=== PATIENT | male | born 1935 | race Caucasian/White ===

== ENCOUNTER 2017-09-30 19:50 | Outpatient (CLI) | payer MEDICARE | END 2017-09-30 19:51 | disposition critical access hospital (66) | LOC: EMS 19:50 | PROVIDERS: ATTEND Surgery | DX: K92.1 Melena (principal); R55 Syncope and collapse | CPT/HCPCS: A0425; A0429 ==

== ENCOUNTER 2017-09-30 20:42 | Inpatient (IN) | payer MEDICARE ==
[2017-09-30] MEDS ORDERED: SODIUM CHLORIDE 0.9% 1,000 ML IV ONE (20:57)
[2017-09-30] MEDS ORDERED: PANTOPRAZOLE 40 MG VIAL IVP STA (20:57)
--- NOTE | 2017-09-30 21:01 | ED Physician Documentation ---
PD HPI GI BLEED - Stated complaint Stated Complaint: GI BLEED - Chief complaint Chief Complaint: Abd Pain - History obtained from History obtained from: Patient, EMS - History of Present Illness Timing - onset: How many days ago (5) Timing - duration: Days (5) Timing - details: Gradual onset, Still present, Waxing and waning Associated symptoms: BRBPR, Black/tarry stool Contributing factors: No: NSAID use Improved by: Other (nothing) Worsened by: Other (nothing) Similar symptoms before: Diagnosis (GI bleeding presumed from diverticula) Recently seen: Clinic (today) - Additional information Additional information: 81-year-old male with a history of intermittent GI bleeding has developed bleeding daily for the past 5 days. He has had bright red blood per rectum and black stool with each black bowel movement since Friday. He states this is happened to him in the past he has never required transfusion he is never been admitted to the hospital for this he has had upper and lower scoping and knows that he has some diverticula. Today he was in his home making dinner and he began to feel lightheaded and dizzy states that he barely made it into the bathroom had more bright red blood per rectum and then decided to call the ambulance after talking to his daughter. He did not have a syncopal episode. He states he has not had anything to eat since yesterday. He did go to see Dr. Bains today had some blood drawn. Review of Systems Constitutional: denies: Fever, Chills, Myalgias Eyes: denies: Decreased vision Ears: denies: Ear pain Nose: denies: Rhinorrhea / runny nose, Congestion Throat: denies: Sore throat Cardiac: denies: Chest pain / pressure, Palpitations Respiratory: denies: Dyspnea, Cough GI: reports: Bloody / black stool. denies: Abdominal Pain, Nausea, Vomiting : denies: Dysuria, Frequency Skin: denies: Rash Musculoskeletal: denies: Neck pain, Back pain, Extremity pain Neurologic: reports: Near syncope. denies: Generalized weakness, Focal weakness , Numbness, Syncope, Headache, Head injury PD PAST MEDICAL HISTORY - Present Medications Home Medications: Ambulatory Orders Medication Instructions Recorded Confirmed Atorvastatin [Lipitor] 20 mg ORAL QPM 09/30/17 Benazepril HCl 5 mg PO DAILY 09/30/17 Metoprolol Succinate 100 mg PO DAILY 09/30/17 Omeprazole 20 mg PO 09/30/17 - Allergies Allergies/Adverse Reactions: Allergies Allergy/AdvReac Type Severity Reaction Status Date / Time Penicillins Allergy Unknown Verified 09/30/17 23:28 PD ED PE NORMAL - Vitals Vital signs reviewed: Yes (Hypertensive) - General General: Alert and oriented X 3, No acute distress, Well developed/nourished, Other (good facial color) - HEENT HEENT: Atraumatic, PERRL, EOMI - Neck Neck: Supple, no meningeal sign - Cardiac Cardiac: RRR, No murmur - Respiratory Respiratory: No respiratory distress, Clear bilaterally - Abdomen Abdomen: Soft, Non tender - Back Back: No CVA TTP, No spinal TTP - Derm Derm: Normal color, Warm and dry, No rash - Extremities Extremities: No deformity, No edema - Neuro Neuro: No motor deficit, No sensory deficit Eye Opening: Spontaneous Motor: Obeys Commands Verbal: Oriented GCS Score: 15 - Psych Psych: Normal mood, Normal affect Results - Vitals Vitals: Vital Signs - 24 hr 09/30/17 20:44 Temperature 36.7 C Heart Rate 70 Respiratory 18 Rate Blood Pressure 154/69 H O2 Saturation 99 Oxygen O2 Source Room air - Labs Labs: Laboratory Tests 09/30/17 09/30/17 09/30/17 21:09 21:09 21:09 WBC 11.8 H RBC 3.69 L Hgb 9.6 L Hct 30.1 L MCV 81.4 MCH 25.9 L MCHC 31.8 L RDW 14.2 Plt Count 192 MPV 8.3 Neut # 9.7 H Lymph # 1.3 L [place] # 0.8 Eos # 0.1 Baso # 0.0 Absolute Nucleated RBC 0.01 Nucleated RBC % 0.1 Sodium 137 Potassium 3.6 Chloride 104 Carbon Dioxide 26 Anion Gap 7.0 BUN 25 H Creatinine 1.0 Estimated GFR (MDRD) 71 L Glucose 109 H Calcium 8.7 Total Bilirubin 0.8 AST 19 ALT 19 Alkaline Phosphatase 48 Troponin I < 0.04 Total Protein 7.0 Albumin 4.2 Globulin 2.8 Albumin/Globulin Ratio 1.5 Lipase 28 Blood Type Antibody Screen 09/30/17 21:09 WBC RBC Hgb Hct MCV MCH MCHC RDW Plt Count MPV Neut # Lymph # [place] # Eos # Baso # Absolute Nucleated RBC Nucleated RBC % Sodium Potassium Chloride Carbon Dioxide Anion Gap BUN Creatinine Estimated GFR (MDRD) Glucose Calcium Total Bilirubin AST ALT Alkaline Phosphatase Troponin I Total Protein Albumin Globulin Albumin/Globulin Ratio Lipase Blood Type O POSITIVE Antibody Screen NEGATIVE Procedures - IVC sono (time) 2100 Bedside IVC sono: IVC measures (cm) (0.82), IVC collapsed c insp (cm) (complete) , Dehydration (est 2 liter deficit) PD MEDICAL DECISION MAKING - ED course Complexity details: reviewed old records, reviewed results, re-evaluated patient , considered differential, d/w patient ED course: 81 y/o male with acute GI bleeding has developed near syncope associated with acute blood loss and is found to have a hematocrit of 30 and is normal is about 43. Dr. Parmar is consulted in the case and graciously agrees to care for the patient in the hospital. Departure - Departure Disposition: ED Place in Observation Discharge Date/Time: 09/30/17 22:40
[2017-09-30 21:20] LABS: BASOPHILS % (AUTO) 0.2 %; EOSINOPHILS # (AUTO) 0.1 10^3/uL (0.0-0.7); EOSINOPHILS % (AUTO) 0.5 %; HGB - HEMOGLOBIN 9.6 g/dL (14.0-18.0); LYMPHOCYTES # (AUTO) 1.3 10^3/uL (1.5-3.5); LYMPHOCYTES % (AUTO) 10.9 %; MEAN CORPUSCULAR HEMOGLOBIN 25.9 pg (27.0-31.0); MEAN CORPUSCULAR HGB CONC 31.8 g/dL (32.0-36.0); MEAN CORPUSCULAR VOLUME 81.4 fL (80.0-94.0); MEAN PLATELET VOLUME 8.3 fL (7.4-11.4); MONOCYTES # (AUTO) 0.8 10^3/uL (0.0-1.0); MONOCYTES % (AUTO) 6.4 %; NEUTROPHILS # (AUTO) 9.7 10^3/uL (1.5-6.6); PLT - PLATELET COUNT 192 10^3/uL (130-450); RED BLOOD COUNT 3.69 10^6/uL (4.70-6.10); RED CELL DISTRIBUTION WIDTH 14.2 % (12.0-15.0); WHITE BLOOD COUNT 11.8 x10^3/uL (4.8-10.8)
[2017-09-30 21:30] LABS: ALBUMIN 4.2 g/dL (3.2-5.5); ALBUMIN/GLOBULIN RATIO 1.5 (1.0-2.2); BILIRUBIN,TOTAL 0.8 mg/dL (0.2-1.0); CALCIUM 8.7 mg/dL (8.5-10.3)
[2017-09-30] MEDS ORDERED: ONDANSETRON 4 MG/2 ML VIAL IVP PRN (21:52)
[2017-09-30] MEDS ORDERED: ACETAMINOPHEN 325 MG TABLET PO PRN (21:52)
[2017-09-30] MEDS ORDERED: oxyCODONE 5 MG TABLET PO PRN (21:52)
[2017-09-30] MEDS ORDERED: ONDANSETRON ODT 4 MG TABLET TL PRN (21:52)
[2017-09-30] MEDS: SODIUM CHLORIDE 0.9% 1,000 ML IV SCH (23:21)
[2017-09-30] MEDS: SODIUM CHLORIDE FLUSH 0.9% 10 ML SYRINGE IVP PRN (23:25)
[2017-10-01] MEDS: SODIUM CHLORIDE FLUSH 0.9% 10 ML SYRINGE IVP SCH ×3 (00:10→17:46)
--- NOTE | 2017-10-01 02:21 | HISTORY & PHYSICAL EXAMINATION ---
DATE OF SERVICE: 09/30/2017 Physician: Demetrice Parmar MD PRIMARY CARE PROVIDER: Juan Bains as of today. ADMITTING PROVIDER: Demetrice Parmar MD CHIEF COMPLAINT: Near syncope in the context of bright red blood per rectum for 3-4 days. HISTORY OF PRESENT ILLNESS: Patient has a history of bright red blood per rectum off and on since 1954. It has gotten gradually worse as he has gotten older. He did have an evaluation approximately 2014 when he became very anemic in the face of this ongoing bright red blood per rectum. An upper and lower endoscopy were done. The only thing that he says they found was diverticulosis. He stoutly maintains that he will never undergo a colonoscopy again because he will not drink "5 gallons of that nasty tasting stuff." [place] to do so and saw Juan Bains today. When he saw Dr. Bains, he was there to establish himself as a new patient. He feels that his bright red blood per rectum is not a chronic problem and it was not bothering him at that moment in time, so he failed to mention it to Dr. Bains. He says the stool will be covered in bright red blood, but occasionally it is black and tarry. In the past, he would take iron for his chronic blood loss anemia and would completely make his stools, black when he did that. He is not on any iron right now. He denies any abdominal pain. No diarrhea, no constipation. He has had no unexpected weight changes. After seeing Dr. Bains, he had another episode of minimally black stool with bright red blood covering it. He tried to make some dinner and while he was standing there almost passed out with dizziness, vision fading and he had to sit down. He tried to make it to the bathroom, but again almost passed out and that is when he decided to call EMS. He was brought to the emergency room where he was afebrile, normotensive and not tachycardic. He was 99% on room air. He had a normal physical exam. Usual hemoglobin seems to be 14.7 and he was 9.6. Hematocrit is usually 43.8, and he was 30, white cell count was mildly elevated at 11.8. He is now brought into the hospital for recurrent GI bleed, and near syncope with acute blood loss anemia. PAST MEDICAL HISTORY 1. Coronary artery disease. Many years ago, he was shopping in [place] with his daughter. While he was waiting for her, he was overcome by a wave of severe fatigue, chest pressure and severe nausea. He sat down, but when he told his daughter what was happening, she promptly called 911 and he ended up at [facility]. He underwent an angioplasty at that time. At that time, he was under the care of Dr. Buck Saenz. He followed Dr. Saenz from [place] to [place]. In 2013, he was mowing his lawn here on [facility]. After mowing his lawn he started having that same horrible chest pressure and nausea and diaphoresis. This time, he was taken to [facility] and is now under the care of Arnold Ayala. With the 2013 admission to [facility], he underwent bypass surgery x3. He denies congestive heart failure, atrial fibrillation. 2. Cataract, right eye was removed with a new lens implant. Left eye still has a cataract and has not been done because that ointment mill tender retired. 3. Osteoarthritis of the thumbs. 4. Asthma as a child that he grew out of. 5. Right knee osteoarthritis with stiffness and pain that was improved tremendously with physical therapy in the last year. ALLERGIES: NO KNOWN DRUG ALLERGIES. MEDICATIONS 1. Atorvastatin 20 mg a day. 2. Benazepril 5 mg a day. 3. Metoprolol succinate 100 mg a day. 4. Omeprazole 20 mg a day. He specifically denies any recent nonsteroidal use. SOCIAL HISTORY: He was born in [place], but his family moved to the [place] and was living [place], [place]. Because public schools were pretty dismal, his family put him in a academy and he feels like that was the best decision that his mom and dad could have ever done. He left that Academy out of high school. He got out and went to the University for one year and hated it. 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 He started smoking in high school, but quit in 1962. Less than half pack per day. He does drink his Seagram-7 once a day. Sits down and watches TV and has an appetizer. He once joked with the [place] nurse that he was drinking 750 mL of Seagram-7. He was being sarcastic, but she took it seriously and to his dismay, Dr. Saenz thought he was an alcoholic, for some time. Patient stoutly maintains he was never an alcohol abuser. His over 30 years ago when she was 45 years old. He has never remarried. He did have 2 children with her. He lives alone in his own home. It is 3000 square foot home, on [place]. He rides motorcycles. Getting ready to plan his motorcycle ride in [place], [place] with his son. FAMILY HISTORY: He was an adopted child, so he does not know his parents ' history. No siblings, as far as he knows. He is 2 children are healthy. REVIEW OF SYSTEMS CONSTITUTIONAL: Negative for constitutional complaints of fever, chills, unexpected weight loss. ENT: Still has a cataract, left eye, but otherwise denies any problems with vision, swallowing, allergies, or speech. PULMONARY: Denies coughing, wheezing, chest congestion. CARDIAC: Vague chest pressure that is mild. Feels like it is stable angina, but no history of palpitations, orthopnea, edema. He is very physically active. GASTROINTESTINAL: Positive as above. GENITOURINARY: Denies nocturia, hematuria, hesitancy, frequency or flank pain. DERMATOLOGIC: Denies having any new lesions, moles, rashes. JOINTS: Knees will be the problem, base of the thumbs will be the problem, but nothing that limits him. No effusions. PSYCHIATRIC: Denies depression, hallucinations, and is very content to live alone in his own home. CENTRAL NERVOUS SYSTEM: Denies syncope, seizures, memory loss, focal deficits, dysphagia, dysarthria or blurred vision. PHYSICAL EXAMINATION VITAL SIGNS: He is seen in the emergency room. Temperature is 36.7, pulse is 72 , blood pressure 154/69, respirations 15, and he is 96% on room air. GENERAL: He is a medium height, alert, oriented white male who looks stated age , in no acute distress. Very vivacious conversationalist. Very charming man. HEAD AND NECK: Unremarkable. Pupils are reactive. Sclerae nonicteric. Good skin color with pink cheeks. [place] and moist oral mucosa. Neck is supple without goiter, JVD, or bruit. LUNGS: Clear to auscultation and percussion without increased labored respiration was speaking to me. CARDIAC: Regular rate and rhythm without murmur, rub or gallop. ABDOMEN: Soft, nontender. No organomegaly. No masses palpable. EXTREMITIES: Warm without clubbing, cyanosis or edema. NEUROLOGIC: He is alert and oriented to person, place and time, follows 2-step commands, is able to help us help him in transferring from the emergency room [facility] to the medical/surgical floor bed. LABORATORY DATA: Sodium, potassium, chloride, BUN and creatinine are relatively normal with a BUN mildly elevated at 25, GFR 71. Random glucose 109. Troponin less than 0.04. White cell count is 11.8, hemoglobin is 9.6, hematocrit 30.1, platelets 192. ASSESSMENT AND PLAN: 1.Near syncope. Attributed to acute blood loss anemia. He seems to describe some orthostatic changes. In thinking of other causes of near syncope , he does not have a history of arrhythmias. Telemetry monitoring in the ED shows sinus rhythm. He has no evidence of dehydration and has had normal p.o. intake. He takes antihypertensives but BP is stable. He does have a history of sepsis/hypotension /UTI but no infection seen even though his WBC is elevated. PLAN: Place in observation. Monitor blood pressure, pulse and for signs of incipient infection. ATTESTATION: That the patient will be admitted less than 96 hours. 2. Bright red blood per rectum with occasional melena. In spite of his telling me that he has had this off and on since 1954, he never really had an endoscopy until his upper and lower endoscopy mentioned above in his history. PLAN - Check serial hemoglobin and hematocrit. - Transfuse if drops left less than 8 of hemoglobin in view of his heart disease. - Get old records from [facility] where he said he underwent evaluation to get a review of his endoscopies. - Patient declines being evaluated here for upper and lower endoscopy. While he does not protest having serial hemograms, and transfusing him as needed, he would like to be transferred if the need for scopes becomes urgent. Otherwise, he would like to be discharged from here when he is stable and he will schedule his own outpatient followup. I told him that I would recommend a capsule endoscopy since he has already had an upper and lower. - Start IV proton pump inhibitor over the next 24 hours. 3. Coronary artery disease history. [place] artery. Continue his beta claude and benazepril since he is tolerating it well. 4. Hypertension. In spite of his near syncope and descriptions of orthostatic dizziness, blood pressure has been 145-154 systolic here. 5. DO NOT RESUSCITATE status. 6. Deep vein thrombosis prophylaxis will be compression stockings. TD: 10/01/2017 02:20 ADDENDUM: I have requested old records from [facility] and they have a sepsis with UTI admission from 11/15/13 and have gone as far back to 2010 when he was hospitalized for a GI bleed. But they have no EGD and colonoscopy. I will have to reask the patient where exactly he had his procedures. MERLIND
[2017-10-01 03:02] LABS: HGB - HEMOGLOBIN 8.6 g/dL (14.0-18.0)
[2017-10-01] MEDS: SODIUM CHLORIDE FLUSH 0.9% 10 ML SYRINGE IVP PRN ×2 (06:42→18:24)
[2017-10-01] MEDS: PANTOPRAZOLE 40 MG VIAL IVP SCH ×2 (06:42→17:46)
[2017-10-01] MEDS: SODIUM CHLORIDE 0.9% 1,000 ML IV SCH (08:22)
[2017-10-01] MEDS: POLYETHYLENE GLYCOL 3350 17 GM PACKET PO SCH (09:08)
[2017-10-01 15:25] LABS: HGB - HEMOGLOBIN 9.4 g/dL (14.0-18.0)
--- NOTE | 2017-10-01 15:46 | Discharge Plan ---
Discharge Plan Disposition: 01 Home, Self Care Condition: Fair Diet: Soft Activity Restrictions: Activity as Tolerated Shower Restrictions: No Driving Restrictions: No Weight Bearing: Full Weight Additional Instructions or Follow Up instructions: You presented to the ER after having a few bloody bowel movements and feeling like you were going to pass out. You had another bowel movement with blood in the hospital but the bleeding seems to have settled down. Your Hb remained stable during the hospitalization and your blood pressure and vital signs remained stable as well. You do not need an urgent colonoscopy at this point. Most likely you were having a diverticular bleed which often resolve spontaneously. I would still recommend that you follow up with your PCP and a surgeon to have a colonoscopy since its been a few years since you had your last colonoscopy. You want to make sure the bleeding is not coming from a more ominous source. You do not however need to stay inpatient to do an urgent colonoscopy. No Smoking: If you smoke, Please STOP! Call for help. Follow-up with: Juan Bains MD [Primary Care Provider] -
--- NOTE | 2017-10-01 17:32 | PROVIDER PROGRESS NOTE ---
Assessment/Plan - Problem List (1) GI bleed Qualifiers: GI bleed type/associated pathology: unspecified gastrointestinal hemorrhage type Qualified Code(s): K92.2 - Gastrointestinal hemorrhage, unspecified Assessment/Plan: Patient had BRBPR yesterday and presented with near syncope Hb remains stable today at 9.4 this afternoon Patient had one BM in the am with mild blood Patient was going to be discharged this afternoon but the patient had 2 moderate bloody BMs VS remain stable and patients hb has not dropped Given continued bleeding will change to inpatient and consult surgery for EGD and COlonoscopy Patient has history of recurrent GIBs thought to be diverticular bleeds in the past Continue IV protonix NPO at midnight Transfuse for hb less than 7 (2) Hypertension Qualifiers: Hypertension type: essential hypertension Qualified Code(s): I10 - Essential (primary) hypertension Assessment/Plan: BP has remained stable despite bleeding Will restart antihypertensives once bleeding stops Monitor for now (3) History of coronary artery disease Assessment/Plan: History of CAD s/p CABG Currently on Lipitor and metoprolol Continue home meds once bleeding resolves Stable - Current Meds Current Meds: Current Medications Generic Name Dose Route Start Last Admin Trade Name Freq PRN Reason Stop Dose Admin Sodium Chloride 1,000 mls @ 100 mls/hr 09/30/17 22:00 10/01/17 08:22 Normal Saline 0.9% IV 10/01/17 17:59 100 mls/hr .Q10H DIVINE Administration Pantoprazole Sodium 40 mg 10/01/17 07:00 10/01/17 06:42 Protonix IVP 40 mg BIDAC DIVINE Administration Polyethylene Glycol 17 gm 10/01/17 09:00 10/01/17 09:08 Miralax PO Not Given DAILY DIVINE Sodium Chloride 10 ml 09/30/17 21:52 10/01/17 06:42 Normal Saline Flush 0.9% IVP 10 ml PRN PRN Administration NEEDED PER PROVIDER ORDERS Sodium Chloride 10 ml 10/01/17 01:00 10/01/17 09:08 Normal Saline Flush 0.9% IVP Not Given 0100,0900,1700 DIVINE - Lab Result Lab results reviewed: Yes Fish Bone Diagrams: 10/01/17 15:15 09/30/17 21:09 - Additional Planning Condition/Complexity: Guarded My Orders: My Active Orders 10/01/17 General Surgery Consult [CONS] Routine 10/01/17 15:46 Discharge [RC] .ONCE Initiate Discharge Checklist [RC] .ONCE 10/01/17 16:47 Admit \ Transfer \ Status [RC] .ONCE 10/01/17 21:00 CBC - COMP BLD CT W/AUTO DIFF [HEME] Timed 10/02/17 00:01 NPO except Meds at Midnight [DIET] 10/02/17 05:00 CBC - COMP BLD CT W/AUTO DIFF [HEME] DAILYLAB CMP, RFLX TO IONIZED CA IF [CHEM] DAILYLAB PT WITH INR [COAG] DAILYLAB 10/02/17 09:00 Atorvastatin Calcium [Atorvastatin Calcium] 80 mg PO DAILY Benazepril HCl [Benazepril HCl] 40 mg PO DAILY Metoprolol Tartrate [Metoprolol Tartrate] 100 mg PO DAILY 10/02/17 Breakfast Clear Liquid Diet [DIET] Consult/Specialty: Surgery Plan Discussed with:: Patient, Family Time Spent: 31-60 minutes Subjective - Subjective Patient Reports: Other (No abdominal pain but continues to have bloody stools, denies dizziness, shortness of breath or syncope.) Nursing Reports: No Complaints Objective Vital Signs: Vital Signs - 24 hr 09/30/17 09/30/17 10/01/17 22:24 22:56 02:57 Temperature 36.3 C L 36.4 C L Heart Rate 72 Heart Rate [ 80 77 Brachial] Respiratory 15 18 18 Rate Blood Pressure 145/54 H 148/62 H [Right Brachial artery] O2 Saturation 96 99 97 10/01/17 10/01/17 07:34 16:00 Temperature 36.6 C 36.3 C L Heart Rate Heart Rate [ 76 96 Brachial] Respiratory 17 18 Rate Blood Pressure 152/60 H 146/73 H [Right Brachial artery] O2 Saturation 97 98 Oxygen O2 Source Room air I&O (Last 24 Hrs): Intake and Output Totals x24h 09/29/17 09/30/17 10/01/17 23:59 23:59 23:59 Intake Total 1000 901.667 Output Total 325 Balance 1000 576.667 General: Alert, Oriented x3, Cooperative, No acute distress HEENT: Atraumatic, PERRLA, EOMI, Mucous membr. moist/pink Neck: Supple, No JVD, No thyromegaly, +2 carotid pulse wo bruit, No LAD Lymphatic: no adenopathy Neuro: Alert, Non Focal, CN 2-12 Grossly Intact, Oriented Times 3 Cardiovascular: Regular rate, Normal S1, Normal S2, No murmurs Respiratory: Chest non-tender, No respiratory distress, Breath sounds nml Abdomen: Normal bowel sounds, Soft, No tenderness, No hepatospenomegaly Rectal: Bloody Stool Extremities: No clubbing, No cyanosis, No edema, Normal pulses Skin: No rashes, No breakdown - Results Results: Laboratory Results WBC 11.8 x10^3/uL (4.8-10.8) H 09/30/17 21:09 RBC 3.69 10^6/uL (4.70-6.10) L 09/30/17 21:09 Hgb 9.4 g/dL (14.0-18.0) L 10/01/17 15:15 Hct 28.4 % (42.0-52.0) L 10/01/17 15:15 MCV 81.4 fL (80.0-94.0) 09/30/17 21:09 MCH 25.9 pg (27.0-31.0) L 09/30/17 21:09 MCHC 31.8 g/dL (32.0-36.0) L 09/30/17 21:09 RDW 14.2 % (12.0-15.0) 09/30/17 21:09 Plt Count 192 10^3/uL (130-450) 09/30/17 21:09 MPV 8.3 fL (7.4-11.4) 09/30/17 21:09 Neut # 9.7 10^3/uL (1.5-6.6) H 09/30/17 21:09 Lymph # 1.3 10^3/uL (1.5-3.5) L 09/30/17 21:09 [place] # 0.8 10^3/uL (0.0-1.0) 09/30/17 21:09 Eos # 0.1 10^3/uL (0.0-0.7) 09/30/17 21:09 Baso # 0.0 10^3/uL (0.0-0.1) 09/30/17 21:09 Absolute Nucleated RBC 0.01 x10^3/uL 09/30/17 21:09 Nucleated RBC % 0.1 /100WBC 09/30/17 21:09 Sodium 137 mmol/L (135-145) 09/30/17 21:09 Potassium 3.6 mmol/L (3.5-5.0) 09/30/17 21:09 Chloride 104 mmol/L (101-111) 09/30/17 21:09 Carbon Dioxide 26 mmol/L (21-32) 09/30/17 21:09 Anion Gap 7.0 (6-13) 09/30/17 21:09 BUN 25 mg/dL (6-20) H 09/30/17 21:09 Creatinine 1.0 mg/dL (0.6-1.2) 09/30/17 21:09 Estimated GFR (MDRD) 71 (>89) L 09/30/17 21:09 Glucose 109 mg/dL (70-100) H 09/30/17 21:09 Calcium 8.7 mg/dL (8.5-10.3) 09/30/17 21:09 Total Bilirubin 0.8 mg/dL (0.2-1.0) 09/30/17 21:09 AST 19 IU/L (10-42) 09/30/17 21:09 ALT 19 IU/L (10-60) 09/30/17 21:09 Alkaline Phosphatase 48 IU/L (42-121) 09/30/17 21:09 Troponin I < 0.04 ng/mL (<0.49) 09/30/17 21:09 Total Protein 7.0 g/dL (6.7-8.2) 09/30/17 21:09 Albumin 4.2 g/dL (3.2-5.5) 09/30/17 21:09 Globulin 2.8 g/dL (2.1-4.2) 09/30/17 21:09 Albumin/Globulin Ratio 1.5 (1.0-2.2) 09/30/17 21:09 Lipase 28 U/L (22-51) 09/30/17 21:09 Blood Type O POSITIVE 09/30/17 21:09 Antibody Screen NEGATIVE 09/30/17 21:09
[2017-10-01 21:08] LABS: BASOPHILS % (AUTO) 0.2 %; EOSINOPHILS # (AUTO) 0.1 10^3/uL (0.0-0.7); EOSINOPHILS % (AUTO) 0.9 %; HGB - HEMOGLOBIN 8.6 g/dL (14.0-18.0); LYMPHOCYTES # (AUTO) 1.9 10^3/uL (1.5-3.5); LYMPHOCYTES % (AUTO) 17.8 %; MEAN CORPUSCULAR HGB CONC 30.4 g/dL (32.0-36.0); MEAN CORPUSCULAR VOLUME 85.4 fL (80.0-94.0); MEAN PLATELET VOLUME 8.9 fL (7.4-11.4); MONOCYTES # (AUTO) 0.8 10^3/uL (0.0-1.0); MONOCYTES % (AUTO) 7.3 %; NEUTROPHILS # (AUTO) 7.9 10^3/uL (1.5-6.6); NEUTROPHILS % (AUTO) 73.8 %; PLT - PLATELET COUNT 170 10^3/uL (130-450); RED BLOOD COUNT 3.31 10^6/uL (4.70-6.10); RED CELL DISTRIBUTION WIDTH 14.6 % (12.0-15.0); WHITE BLOOD COUNT 10.7 x10^3/uL (4.8-10.8)
[2017-10-01] MEDS: ATORVASTATIN 40 MG TABLET PO SCH (21:23)
[2017-10-02] MEDS: SODIUM CHLORIDE FLUSH 0.9% 10 ML SYRINGE IVP SCH ×5 (00:22→23:45)
[2017-10-02 05:30] LABS: BASOPHILS % (AUTO) 0.3 %; EOSINOPHILS # (AUTO) 0.1 10^3/uL (0.0-0.7); EOSINOPHILS % (AUTO) 1.4 %; HGB - HEMOGLOBIN 7.7 g/dL (14.0-18.0); LYMPHOCYTES # (AUTO) 1.2 10^3/uL (1.5-3.5); LYMPHOCYTES % (AUTO) 13.5 %; MEAN CORPUSCULAR HEMOGLOBIN 26.1 pg (27.0-31.0); MEAN CORPUSCULAR HGB CONC 31.8 g/dL (32.0-36.0); MEAN PLATELET VOLUME 8.7 fL (7.4-11.4); MONOCYTES # (AUTO) 0.6 10^3/uL (0.0-1.0); NEUTROPHILS % (AUTO) 77.8 %; PLT - PLATELET COUNT 163 10^3/uL (130-450); RED BLOOD COUNT 2.95 10^6/uL (4.70-6.10); RED CELL DISTRIBUTION WIDTH 14.6 % (12.0-15.0)
[2017-10-02 05:31] LABS: INR 1.2 (0.8-1.2); PT - PROTHROMBIN TIME 13.4 secs (9.9-12.6)
[2017-10-02 05:39] LABS: ALBUMIN 3.5 g/dL (3.2-5.5); ALBUMIN/GLOBULIN RATIO 1.4 (1.0-2.2); ALKALINE PHOSPHATASE 39 IU/L (42-121); ALT ALANINE AMINOTRANSFERASE 15 IU/L (10-60); AST ASPARTATE AMINOTRANSFERASE 16 IU/L (10-42); BILIRUBIN,TOTAL 0.7 mg/dL (0.2-1.0); BUN - BLOOD UREA NITROGEN 19 mg/dL (6-20); CALCIUM 8.1 mg/dL (8.5-10.3); CARBON DIOXIDE - CO2 24 mmol/L (21-32); CHLORIDE 110 mmol/L (101-111); CREATININE 0.8 mg/dL (0.6-1.2); GFR - MDRD 92 (>89); GLUCOSE 94 mg/dL (70-100); SODIUM 140 mmol/L (135-145)
[2017-10-02 05:43] LABS: VBG PH 7.414 (7.31-7.41)
[2017-10-02] MEDS: SODIUM CHLORIDE FLUSH 0.9% 10 ML SYRINGE IVP PRN ×2 (06:36→16:24)
[2017-10-02] MEDS: PANTOPRAZOLE 40 MG VIAL IVP SCH ×3 (06:36→16:23)
[2017-10-02] MEDS: POLYETHYLENE GLYCOL 3350 17 GM PACKET PO SCH (09:25)
[2017-10-02] MEDS: METOPROLOL TARTRATE 50 MG TABLET PO SCH (09:29)
[2017-10-02] MEDS: LISINOPRIL 20 MG TABLET PO SCH (09:32)
[2017-10-02] MEDS: SODIUM/POTASSIUM/MAG SULFATES 354 ML PREP KIT PO SCH ×2 (10:24→12:10)
[2017-10-02] MEDS ORDERED: LACTATED RINGERS 1,000 ML IV ONE ×2 (10:37→17:38)
[2017-10-02] MEDS ORDERED: LIDOCAINE-MPF 2% 5 ML VIAL IM ONE (17:30)
[2017-10-02] MEDS ORDERED: fentaNYL 100 MCG/2 ML VIAL IVP ONE (17:30)
[2017-10-02] MEDS ORDERED: PROPOFOL 200 MG/20 ML VIAL IVP ONE (17:30)
[2017-10-02] MEDS ORDERED: MIDAZOLAM 2 MG/2 ML VIAL IVP ONE (17:30)
--- NOTE | 2017-10-02 17:34 | PROVIDER PROGRESS NOTE ---
Assessment/Plan - Problem List (1) GI bleed Qualifiers: GI bleed type/associated pathology: unspecified gastrointestinal hemorrhage type Qualified Code(s): K92.2 - Gastrointestinal hemorrhage, unspecified Assessment/Plan: Patient had BRBPR yesterday and presented with near syncope Hb down to 7.7 this am given his history of CAD with CABG will given 2 units PRBCs Patient will undergo EGD and colonoscopy later today Surgery is following Patient likely has diverticular bleed COntinue Protonix IV Check after transfusion and in the AM (2) Hypertension Qualifiers: Hypertension type: essential hypertension Qualified Code(s): I10 - Essential (primary) hypertension Assessment/Plan: BP is elevated despite bleeding Will restart remainder antihypertensives tomorrow Monitor for now (3) History of coronary artery disease Assessment/Plan: History of CAD s/p CABG Currently on Lipitor and metoprolol Continue home meds once bleeding resolves Stable - Current Meds Current Meds: Current Medications Generic Name Dose Route Start Last Admin Trade Name Freq PRN Reason Stop Dose Admin Atorvastatin Calcium 80 mg 10/01/17 21:00 10/01/17 21:23 Lipitor PO 80 mg QPM DIVINE Administration Lisinopril 40 mg 10/02/17 09:00 10/02/17 09:32 Zestril PO 40 mg DAILY DIVINE Administration Metoprolol Tartrate 100 mg 10/02/17 09:00 10/02/17 09:29 Lopressor PO 100 mg QD DIVINE Administration Pantoprazole Sodium 40 mg 10/01/17 07:00 10/02/17 16:23 Protonix IVP 40 mg BIDAC DIVINE Administration Polyethylene Glycol 17 gm 10/01/17 09:00 10/02/17 09:25 Miralax PO Not Given DAILY DIVINE Sodium Chloride 10 ml 09/30/17 21:52 10/02/17 16:24 Normal Saline Flush 0.9% IVP 10 ml PRN PRN Administration NEEDED PER PROVIDER ORDERS Sodium Chloride 10 ml 10/01/17 01:00 10/02/17 16:23 Normal Saline Flush 0.9% IVP 10 ml [id number] DIVINE Administration - Lab Result Lab results reviewed: Yes Fish Bone Diagrams: 10/02/17 04:52 10/02/17 04:52 - Diagnostic Imaging Results Diagnostic Imaging Results: Final report reviewed - Additional Planning Condition/Complexity: Guarded My Orders: My Active Orders 10/01/17 21:00 Atorvastatin [Lipitor] 80 mg PO QPM 10/02/17 RBC, LEUKOREDUCED Stat 10/02/17 09:00 Lisinopril [Zestril] 40 mg PO DAILY Metoprolol Tartrate [Lopressor] 100 mg PO QD 10/02/17 18:00 CBC W/O DIFF (HEMOGRAM) [HEME] Timed 10/03/17 05:00 CBC W/O DIFF (HEMOGRAM) [HEME] DAILYLAB CMP, RFLX TO IONIZED CA IF [CHEM] DAILYLAB 10/04/17 05:00 CBC W/O DIFF (HEMOGRAM) [HEME] DAILYLAB CMP, RFLX TO IONIZED CA IF [CHEM] DAILYLAB Consult/Specialty: Surgery Plan Discussed with:: Patient Time Spent: 31-60 minutes Subjective - Subjective Patient Reports: Resting Comfortably, Other (He had no bloody BMs overnight. He denies any abdominal pain. Denies dizziness or lightheadness.) Nursing Reports: No Complaints Objective Vital Signs: Vital Signs - 24 hr 10/01/17 10/02/17 10/02/17 18:41 00:10 08:00 Temperature 36.6 C 36.8 C 36.5 C Heart Rate Heart Rate [ 80 75 80 Brachial] Respiratory 20 18 16 Rate Blood Pressure Blood Pressure 149/69 H 147/63 H 153/69 H [Right Brachial artery] O2 Saturation 98 98 97 10/02/17 10/02/17 10/02/17 09:29 09:54 10:00 Temperature 36.9 C 36.9 C Heart Rate 64 62 Heart Rate [ Brachial] Respiratory 16 20 Rate Blood Pressure 157/56 H 154/58 H 157/54 H Blood Pressure [Right Brachial artery] O2 Saturation 10/02/17 10/02/17 10/02/17 10:17 12:00 12:16 Temperature 36.7 C 36.5 C 36.5 C Heart Rate 62 56 L 56 L Heart Rate [ 56 L Brachial] Respiratory 18 18 18 Rate Blood Pressure 162/79 H 118/56 L 118/49 L Blood Pressure 118/49 L [Right Brachial artery] O2 Saturation 99 10/02/17 10/02/17 10/02/17 12:35 14:25 16:00 Temperature 36.4 C L 36.4 C L 36.2 C L Heart Rate 60 60 Heart Rate [ 62 Brachial] Respiratory 18 18 20 Rate Blood Pressure 114/42 L 151/67 H Blood Pressure 171/60 H [Right Brachial artery] O2 Saturation 100 Oxygen O2 Source Room air I&O (Last 24 Hrs): Intake and Output Totals x24h 09/30/17 10/01/17 10/02/17 23:59 23:59 23:59 Intake Total 1130 1217 Balance 1130 1217 General: Alert, Oriented x3, Cooperative HEENT: Atraumatic, PERRLA, EOMI, Mucous membr. moist/pink, Other (COnjunctival pallor) Neck: Supple, No JVD, No thyromegaly, +2 carotid pulse wo bruit, No LAD Lymphatic: no adenopathy Neuro: Alert, Non Focal, CN 2-12 Grossly Intact, Oriented Times 3 Cardiovascular: Regular rate, Normal S1, Normal S2, No murmurs Respiratory: Chest non-tender, No respiratory distress, Breath sounds nml Abdomen: Normal bowel sounds, Soft, No tenderness, No hepatospenomegaly Rectal: Bloody Stool Extremities: No clubbing, No cyanosis, No edema, Normal pulses Skin: No rashes, No breakdown - Results Results: Laboratory Results WBC 9.0 x10^3/uL (4.8-10.8) 10/02/17 04:52 RBC 2.95 10^6/uL (4.70-6.10) L 10/02/17 04:52 Hgb 7.7 g/dL (14.0-18.0) L 10/02/17 04:52 Hct 24.2 % (42.0-52.0) L 10/02/17 04:52 MCV 82.0 fL (80.0-94.0) 10/02/17 04:52 MCH 26.1 pg (27.0-31.0) L 10/02/17 04:52 MCHC 31.8 g/dL (32.0-36.0) L 10/02/17 04:52 RDW 14.6 % (12.0-15.0) 10/02/17 04:52 Plt Count 163 10^3/uL (130-450) 10/02/17 04:52 MPV 8.7 fL (7.4-11.4) 10/02/17 04:52 Neut # 7.0 10^3/uL (1.5-6.6) H 10/02/17 04:52 Lymph # 1.2 10^3/uL (1.5-3.5) L 10/02/17 04:52 [place] # 0.6 10^3/uL (0.0-1.0) 10/02/17 04:52 Eos # 0.1 10^3/uL (0.0-0.7) 10/02/17 04:52 Baso # 0.0 10^3/uL (0.0-0.1) 10/02/17 04:52 Absolute Nucleated RBC 0.00 x10^3/uL 10/02/17 04:52 Nucleated RBC % 0.0 /100WBC 10/02/17 04:52 PT 13.4 secs (9.9-12.6) H 10/02/17 04:52 INR 1.2 (0.8-1.2) 10/02/17 04:52 VBG pH 7.414 (7.31-7.41) H 10/02/17 04:52 Ionized Calcium 1.11 mmol/L (1.15-1.33) L 10/02/17 04:52 Sodium 140 mmol/L (135-145) 10/02/17 04:52 Potassium 3.3 mmol/L (3.5-5.0) L 10/02/17 04:52 Chloride 110 mmol/L (101-111) 10/02/17 04:52 Carbon Dioxide 24 mmol/L (21-32) 10/02/17 04:52 Anion Gap 6.0 (6-13) 10/02/17 04:52 BUN 19 mg/dL (6-20) 10/02/17 04:52 Creatinine 0.8 mg/dL (0.6-1.2) 10/02/17 04:52 Estimated GFR (MDRD) 92 (>89) 10/02/17 04:52 Glucose 94 mg/dL (70-100) 10/02/17 04:52 Calcium 8.1 mg/dL (8.5-10.3) L 10/02/17 04:52 Ionized Calcium YES 10/02/17 04:52 Total Bilirubin 0.7 mg/dL (0.2-1.0) 04/19/18 04:52 AST 16 IU/L (10-42) 10/02/17 04:52 ALT 15 IU/L (10-60) 10/02/17 04:52 Alkaline Phosphatase 39 IU/L (42-121) L 10/02/17 04:52 Troponin I < 0.04 ng/mL (<0.49) 09/30/17 21:09 Total Protein 6.0 g/dL (6.7-8.2) L 10/02/17 04:52 Albumin 3.5 g/dL (3.2-5.5) 10/02/17 04:52 Globulin 2.5 g/dL (2.1-4.2) 10/02/17 04:52 Albumin/Globulin Ratio 1.4 (1.0-2.2) 10/02/17 04:52 Lipase 28 U/L (22-51) 09/30/17 21:09 Blood Type O POSITIVE 09/30/17 21:09 Antibody Screen NEGATIVE 09/30/17 21:09 Crossmatch IS Only See Detail 09/30/17 21:09
[2017-10-02 20:15] LABS: HGB - HEMOGLOBIN 9.9 g/dL (14.0-18.0); MEAN CORPUSCULAR HEMOGLOBIN 26.6 pg (27.0-31.0); MEAN CORPUSCULAR HGB CONC 32.8 g/dL (32.0-36.0); MEAN PLATELET VOLUME 8.7 fL (7.4-11.4); RED BLOOD COUNT 3.74 10^6/uL (4.70-6.10); RED CELL DISTRIBUTION WIDTH 15.1 % (12.0-15.0); WHITE BLOOD COUNT 10.8 x10^3/uL (4.8-10.8)
[2017-10-02] MEDS: ATORVASTATIN 40 MG TABLET PO SCH (21:33)
[2017-10-02] MEDS: PANTOPRAZOLE 40 MG TABLET PO SCH (21:33)
--- NOTE | 2017-10-02 22:48 | CONSULTATION NOTE ---
Referring Provider Name of Referring Provider:: Dr. Bell Consult Date: 10/01/17 Chief Complaint - Chief Complaint Chief Complaint: Recurrent rectal bleeding History of Present Illness - Admitted From Admitted From:: Emergency department - History Obtained From Records Reviewed: Yes History obtained from: Patient and chart Exam Limitations: None - History of Present Illness HPI Comment/Other: This very pleasant 81-year-old male is evaluated in room 2[facility] For part of the evaluation Dr. Bell was also present. To summarize his history he has had a problem with recurrent rectal bleeding which has been determined to be diverticular in nature in the past. I think this was determined via colonoscopy at [facility]. The patient states that some of the information from [facility] was not very clear to him. At any rate, his last colonoscopy was in 2014. This hospitalization has required blood transfusions to support his hemoglobin and hematocrit. The bleeding has been painless. The blood is rather bright red. History - Past Medical History Cardiovascular: reports: Hypertension, Other Respiratory: reports: None Neuro: reports: None Endocrine/Autoimmune: reports: None GI: reports: GI bleed, Diverticulitis : reports: None HEENT: reports: Chronic hearing loss Psych: reports: None Musculoskeletal: reports: None Derm: reports: None MRSA Hx?: No - Past Surgical History General: reports: Other Cardiovascular: reports: CABG HEENT: reports: Cataracts - POLST Patient has POLST: No Meds/Allgy - Home Medications Home Medications: Ambulatory Orders Medication Instructions Recorded Confirmed Omeprazole 20 mg PO DAILY 09/30/17 10/01/17 Atorvastatin Calcium 80 mg PO DAILY 10/01/17 10/01/17 Benazepril HCl 40 mg PO DAILY 10/01/17 10/01/17 Metoprolol Tartrate 100 mg PO DAILY 10/01/17 10/01/17 - Allergies Allergies/Adverse Reactions: Allergies Allergy/AdvReac Type Severity Reaction Status Date / Time Penicillins Allergy Unknown Verified 09/30/17 23:28 Review of Systems - Constitutional Constitutional: denies: Fatigue, Fever, Chills, Malaise - Eyes Eyes: denies: Pain - Ears, Nose & Throat Ears, Nose & Throat: denies: Ear pain - Cardiovascular Cariovascular: denies: Irregular heart rate, Palpitations, Chest pain - Respiratory Respiratory: denies: Cough, Sputum production, Wheezing - Gastrointestinal Gastrointestinal: reports: Rectal bleeding. denies: Abdominal pain - Psychiatric Psychiatric: denies: Depression - Endocrine Endocrine: denies: Polyuria, Polydypsia - Hematologic/Lymphatic Hematologic/Lymphatic: reports: Anemia Exam - Vital Signs Reviewed Vital Signs: Yes Vital Signs: Vital Signs x48h Temp Pulse Resp BP BP Pulse Ox 10/02/17 20:35 36.5 C 63 20 156/54 H 98 10/02/17 19:44 36.7 C 72 20 155/59 H 98 10/02/17 19:07 36.4 C L 73 20 138/59 H 100 10/02/17 18:35 37.4 C 62 16 141/65 H 100 10/02/17 18:23 96 10/02/17 18:12 99 10/02/17 18:07 97 10/02/17 18:02 100 10/02/17 16:00 36.2 C L 62 20 171/60 H 100 - Physical Exam General Appearance: positive: No acute distress Eyes Bilateral: positive: No lid inflammation, Conjunctivae nml, No scleral icterus ENT: positive: Dry mucous membranes Neck: positive: Trachea midline Respiratory: positive: Chest non-tender Cardiovascular: positive: Regular rate & rhythm Abdomen: positive: Non-tender, Nml bowel sounds Rectal: positive: Other (Deferred until colonoscopy.) Extremities: positive: Nml appearance Neurologic/Psychiatric: positive: Oriented x3 Conclusion/Plan - Diagnosis Diagnosis: Rectal bleeding probably secondary to diverticular disease - Plan Plan: Colonoscopy with possible biopsies and/or polypectomies. Indications, procedure , alternatives (such as barium enema, Cologuard and even no procedure at all) and risks including but not limited to perforation requiring operative repair, bleeding with its risks, and were fully explained to him. Conscious sedation was discussed at length with him as were its risks including but not limited to loss of airway, aspiration, respiratory depression, and not enough relief of pain and anxiety and he indicated that he wished to have conscious sedation for his procedure. I explained that MAC anesthesia is associated with a higher incidence of colon perforation. Review of his history does not reveal any significant systemic disease that would contraindicate use of conscious sedation or MAC anesthesia. All questions were fully answered. Verbal and written consent was obtained. The patient in preparation for his colonoscopy will be n.p.o. and his colon will be mechanically prepped. 35 minutes of [id number] time spent with the patient the majority of which was spent in discussion - Lab Results Lab results reviewed: Yes Fish Bones: 10/02/17 19:45 10/02/17 04:52
[2017-10-03] MEDS: PANTOPRAZOLE 40 MG TABLET PO SCH (06:53)
[2017-10-03 07:52] VITALS: BP 147/63
--- NOTE | 2017-10-03 08:02 | DISCHARGE SUMMARY ---
"Discharge Summary Admit Date: 09/30/17 Discharge Date: 10/03/17 Discharging Provider: Eulogio Bell MD Primary Care Provider: Juan Bains MD Code Status: Do Not Attempt Resuscitation Condition at Discharge: Good Discharge Disposition: 01 Home, Self Care - DIAGNOSES Admission Diagnoses: 1. Near syncope 2. Bright red blood per rectum 3. History of coronary artery disease 4. Hypertension Discharge Diagnoses with Status of Each Condition: 1. Diverticular bleed: Stable 2. Hypertension: Stable 3. History of coronary disease: Stable - HPI History of Present Illness: Patient is a 81-year-old gentleman with a past medical history significant for coronary artery disease, cataracts, osteoarthritis, asthma and recurrent diverticular bleeds who presented to the emergency department with near syncope. The patient stated that he has had off and on bright red blood per rectum since 1954. It is gotten gradually worse since he has gotten older. He did have an evaluation approximately in 2014 when he became very anemic and was having ongoing bright red blood per rectum. He underwent an upper and lower endoscopy. The only thing that was found was diverticulosis. It was thought that he had had a diverticular bleed. There was no active bleeding seen on that colonoscopy. Most of his care has been at [facility] for his GI bleeds. The patient states that prior to coming to the emergency department he had 2 large bowel movements with bright red blood. He states that he tried to make dinner after the bowel movements and when he was standing he feels as though he almost passed out. He states he felt dizzy he felt his vision was fading and he sat down. He states he had to go back to the bathroom again and going to the bathroom he almost passed out therefore he decided to call EMS. He was brought into the emergency department where he was afebrile normotensive and not tachycardic. He was 99% on room air. He had a normal physical exam. Usual hemoglobin seems to be 14.7 and was down to 9.6 on presentation. He was initially placed in observation for a GI bleed and near syncope. - CONSULTS | PROCEDURES Consultations: General surgery: Chino Mays MD Procedures: Colonoscopy Findings: Diffuse nonbleeding diverticula - HOSPITAL COURSE Hospital Course: During his first 24 hours in the hospital the patient did have 2 episodes of bright red blood per rectum however these seem to be decreasing in intensity and patient seemed to be doing better as his hemoglobin remained stable overnight. Initially he was going to be discharged but after discharge papers were given the patient had additional bright red blood per rectum this time moderate amount. He had 2 bowel movements with bright red blood. His discharge was canceled and surgery was consulted. The patient was placed on Protonix IV through the hospitalization. The patient's hemoglobin fell to 7.7 after his larger bright red blood per rectum bowel movements. He was transfused 2 units of packed RBCs. Surgery took the patient for colonoscopy and did not find any active bleeding. The patient did have diffuse diverticulosis. The patient's hemoglobin improved to 9.9 he had no further bright red blood per rectum. The patient was discharged home in stable condition and will follow up with his primary care physician. The patient was advised that if he does have episodes of diverticular bleeds in the future that the best course of action would be for him to go to a center with interventional radiology so that he could get an angiogram and possible embolization otherwise if these do continue he should consider getting a left hemicolectomy by surgery. - ALLERGIES Allergies/Adverse Reactions: Allergies Allergy/AdvReac Type Severity Reaction Status Date / Time Penicillins Allergy Unknown Verified 09/30/17 23:28 - MEDICATIONS Home Medications: Ambulatory Orders Medication Instructions Recorded Confirmed Omeprazole 20 mg PO DAILY 09/30/17 10/01/17 Atorvastatin Calcium 80 mg PO DAILY 10/01/17 10/01/17 Benazepril HCl 40 mg PO DAILY 10/01/17 10/01/17 Metoprolol Tartrate 100 mg PO DAILY 10/01/17 10/01/17 - PHYSICAL EXAM AT DISCHARGE General Appearance: positive: No acute distress, Alert Eyes Bilateral: positive: Normal inspection, PERRL, EOMI, No lid inflammation, Conjunctivae nml, No scleral icterus ENT: positive: ENT inspection nml, Pharynx nml, No signs of dehydration. negative: Purulent nasal drainage, Pharyngeal erythema, Oral lesions Neck: positive: Nml inspection, Thyroid nml, No JVD, Trachea midline. negative : Thyromegaly, Lymphadenopathy (R), Lymphadenopathy (L), Stiff neck Respiratory: positive: Chest non-tender, No respiratory distress, Breath sounds nml. negative: Wheezes, Rales, Rhonchi Cardiovascular: positive: Regular rate & rhythm, No murmur, No gallop Peripheral Pulses: positive: 2+ Abdomen: positive: Non-tender, No organomegaly, Nml bowel sounds, No distention. negative: Guarding, Rebound, Hepatomegaly Back: positive: Nml inspection. negative: CVA tenderness (R), CVA tenderness (L ) Skin: positive: Color nml, No rash, Warm. negative: Cyanosis, Diaphoresis, Pallor Extremities: positive: Non-tender, Full ROM, Nml appearance, No pedal edema Neurologic/Psychiatric: positive: Oriented x3, CN's nml (2-12), Motor nml, Sensation nml - LABS Result Diagrams: 10/02/17 19:45 10/02/17 04:52 Other Lab Results: Laboratory Results WBC 10.8 x10^3/uL (4.8-10.8) 10/02/17 19:45 RBC 3.74 10^6/uL (4.70-6.10) L 10/02/17 19:45 Hgb 9.9 g/dL (14.0-18.0) L 10/02/17 19:45 Hct 30.3 % (42.0-52.0) L 10/02/17 19:45 MCV 81.0 fL (80.0-94.0) 10/02/17 19:45 MCH 26.6 pg (27.0-31.0) L 10/02/17 19:45 MCHC 32.8 g/dL (32.0-36.0) 10/02/17 19:45 RDW 15.1 % (12.0-15.0) H 10/02/17 19:45 Plt Count 169 10^3/uL (130-450) 10/02/17 19:45 MPV 8.7 fL (7.4-11.4) 10/02/17 19:45 Neut # 7.0 10^3/uL (1.5-6.6) H 10/02/17 04:52 Lymph # 1.2 10^3/uL (1.5-3.5) L 10/02/17 04:52 [place] # 0.6 10^3/uL (0.0-1.0) 10/02/17 04:52 Eos # 0.1 10^3/uL (0.0-0.7) 10/02/17 04:52 Baso # 0.0 10^3/uL (0.0-0.1) 10/02/17 04:52 Absolute Nucleated RBC 0.00 x10^3/uL 10/02/17 04:52 Nucleated RBC % 0.0 /100WBC 10/02/17 04:52 PT 13.4 secs (9.9-12.6) H 10/02/17 04:52 INR 1.2 (0.8-1.2) 10/02/17 04:52 VBG pH 7.414 (7.31-7.41) H 10/02/17 04:52 Ionized Calcium 1.11 mmol/L (1.15-1.33) L 10/02/17 04:52 Sodium 140 mmol/L (135-145) 10/02/17 04:52 Potassium 3.3 mmol/L (3.5-5.0) L 10/02/17 04:52 Chloride 110 mmol/L (101-111) 10/02/17 04:52 Carbon Dioxide 24 mmol/L (21-32) 10/02/17 04:52 Anion Gap 6.0 (6-13) 10/02/17 04:52 BUN 19 mg/dL (6-20) 10/02/17 04:52 Creatinine 0.8 mg/dL (0.6-1.2) 10/02/17 04:52 Estimated GFR (MDRD) 92 (>89) 10/02/17 04:52 Glucose 94 mg/dL (70-100) 10/02/17 04:52 Calcium 8.1 mg/dL (8.5-10.3) L 10/02/17 04:52 Ionized Calcium YES 10/02/17 04:52 Total Bilirubin 0.7 mg/dL (0.2-1.0) 10/02/17 04:52 AST 16 IU/L (10-42) 10/02/17 04:52 ALT 15 IU/L (10-60) 10/02/17 04:52 Alkaline Phosphatase 39 IU/L (42-121) L 10/02/17 04:52 Troponin I < 0.04 ng/mL (<0.49) 09/30/17 21:09 Total Protein 6.0 g/dL (6.7-8.2) L 10/02/17 04:52 Albumin 3.5 g/dL (3.2-5.5) 10/02/17 04:52 Globulin 2.5 g/dL (2.1-4.2) 10/02/17 04:52 Albumin/Globulin Ratio 1.4 (1.0-2.2) 10/02/17 04:52 Lipase 28 U/L (22-51) 09/30/17 21:09 Blood Type O POSITIVE 09/30/17 21:09 Antibody Screen NEGATIVE 09/30/17 21:09 Crossmatch IS Only See Detail 09/30/17 21:09 - FOLLOW UP Follow Up: Patient will follow up with his primary care physician. The patient was transfused 2 units of packed RBCs and did undergo colonoscopy. He was found to have a diverticular bleed and will need follow-up with surgery if he continues to have recurrent bleeds for a left hemicolectomy. - TIME SPENT Time Spent in Discharge (Minutes): 45"
--- NOTE | 2017-10-03 08:05 | Discharge Plan ---
Discharge Plan Disposition: 01 Home, Self Care Condition: Good Diet: Regular Activity Restrictions: Activity as Tolerated Shower Restrictions: No Driving Restrictions: No Weight Bearing: Full Weight Additional Instructions or Follow Up instructions: You presented to the ER after having a few bloody bowel movements and feeling like you were going to pass out. He had several more bloody bowel movements while you were hospitalized. Her hemoglobin dropped to below 8 and you required a transfusion of 2 units of red blood cells. You also underwent a colonoscopy which showed that you had diverticula which were not actively bleeding. It seems that you are having recurrent diverticular bleeds for many years. I would suggest if you do start having another bleed that you get seen by interventional radiology for an angiogram and possible embolization otherwise if you continue to have recurrent bleeds the option will be for a colectomy to remove your colon and hopefully resolve the issue. Please follow- up with your primary care physician and consider seeing the surgeon if you would like an elective procedure. No Smoking: If you smoke, Please STOP! Call for help. Follow-up with: Juan Bains MD [Primary Care Provider] -
[2017-10-03] MEDS: LISINOPRIL 20 MG TABLET PO SCH (08:43)
[2017-10-03] MEDS: METOPROLOL TARTRATE 50 MG TABLET PO SCH (08:44)
== END 2017-10-03 11:04 | disposition home or self-care (01) | DRG 378 ==
LOC: EDUNIT# → ED 20:42 → OBS 21:53 → OBSVTOIN 10-01 16:47 → MS2 10-01 18:49
PROVIDERS: ADMIT Specialist; ATTEND Internal Medicine
PROC: 0DJD8ZZ Inspection of Lower Intestinal Tract, Via Natural or Artificial Opening Endoscopic (ICD-10-PCS; principal; 2017-10-02 16:00)
DX: K62.5 Hemorrhage of anus and rectum (principal); D50.0 Iron deficiency anemia secondary to blood loss (chronic); K57.31 Diverticulosis of large intestine without perforation or abscess with bleeding; D62 Acute posthemorrhagic anemia; M19.042 Primary osteoarthritis, left hand; M19.041 Primary osteoarthritis, right hand; M17.11 Unilateral primary osteoarthritis, right knee; I10 Essential (primary) hypertension; I25.10 Atherosclerotic heart disease of native coronary artery without angina pectoris; H91.90 Unspecified hearing loss, unspecified ear; M19.90 Unspecified osteoarthritis, unspecified site; K21.9 Gastro-esophageal reflux disease without esophagitis; Z66 Do not resuscitate; Z79.899 Other long term (current) drug therapy; Z87.891 Personal history of nicotine dependence; Z95.1 Presence of aortocoronary bypass graft
CPT/HCPCS: 36415; 80053; 82330; 83690; 84484; 85014; 85018; 85025; 85610; 86850; 86900; 86901; 86920; 96361; 96374; 96376; 99284

== ENCOUNTER 2018-04-09 07:18 | Day surgery (SDC) | payer MEDICARE ==
[2018-04-09] MEDS ORDERED: EPINEPHrine 1 MG/ML AMP ONE (07:19)
[2018-04-09] MEDS ORDERED: TIMOLOL 0.5% OPHTH DROPS ONE (07:19)
[2018-04-09] MEDS ORDERED: TRIAMCIN/MOXIFLOX OPHTHALMIC 0.6 ML VIAL IO ONE (07:19)
[2018-04-09] MEDS ORDERED: BRIMONIDINE 0.2% OPHTH DROPS 5 ML ONE (07:19)
[2018-04-09] MEDS ORDERED: BSS/LIDOCAINE/EPINEPHRINE 1 ML SYRINGE ONE (07:20)
[2018-04-09] MEDS ORDERED: VANCOMYCIN OPHTHALMI 8MG/0.8ML 8 MG/0.8 ML SYRINGE IO ONE (07:20)
[2018-04-09] MEDS ORDERED: CYCLOPENTOLATE 1% OPHTH DROPS 2 ML ONE (07:32)
[2018-04-09] MEDS ORDERED: KETOROLAC 0.45% OPHTH DROPS ONE (07:32)
[2018-04-09] MEDS ORDERED: PROPARACAINE 0.5% OPHTH DROPS 15 ML ONE (07:32)
[2018-04-09] MEDS ORDERED: PHENYLEPHRINE 2.5% OPHTH 2 ML DROPS ONE (07:32)
[2018-04-09] MEDS ORDERED: LACTATED RINGERS 500 ML IV ONE (07:32)
[2018-04-09] MEDS ORDERED: PROPARACAINE 0.5% OPHTH DROPS 15 ML LEFTEYE ONE ×2 (07:45→08:34)
[2018-04-09] MEDS ORDERED: CYCLOPENTOLATE 1% OPHTH DROPS 2 ML LEFTEYE ONE (07:45)
[2018-04-09] MEDS ORDERED: KETOROLAC 0.45% OPHTH DROPS LEFTEYE ONE (07:45)
[2018-04-09] MEDS ORDERED: PHENYLEPHRINE 2.5% OPHTH 2 ML DROPS LEFTEYE ONE (07:45)
--- NOTE | 2018-04-09 07:58 | ANESTHESIA ---
Pre-Anesthesia VS, & Labs - Diagnosis Left senile combined cataract - Procedure Left phaco with IOL implant Vital Signs: Temp Pulse Resp BP Pulse Ox 36.8 C 89 16 150/86 H 97 04/09/18 07:37 04/09/18 07:37 04/09/18 07:37 04/09/18 07:37 04/09/18 07:37 Height 5 ft 8 in Weight (kg) 85.3 kg Body Mass Index 28.8 - NPO >8 hours Home Medications and Allergies Omeprazole 20 mg PO DAILY 09/30/17 Atorvastatin Calcium 80 mg PO DAILY 10/01/17 Benazepril HCl 40 mg PO DAILY 10/01/17 Metoprolol Tartrate 100 mg PO DAILY 10/01/17 Allergies/Adverse Reactions: Allergies Allergy/AdvReac Type Severity Reaction Status Date / Time Penicillins Allergy Unknown Verified 09/30/17 23:28 Anes History & Medical History - Anesthetic History Anesthesia Complications: reports: No previous complications Family history of Anesthesia Complications: Denies Family history of Malignant Hyperthermia: Denies - Medical History Cardiovascular: reports: Hypertension, Other Pulmonary: reports: None Gastrointestinal: reports: GI bleed, Diverticulitis Urinary: reports: None Neuro: reports: None Musculoskeletal: reports: None Endocrine/Autoimmune: reports: None Blood Disorders: reports: Anemia Skin: reports: None Smoking Status: Former smoker Psychosocial: reports: No issues indicated - Surgical History General: Other Eyes Ears Nose Throat (EENT): Cataracts Cardiothoracic: CABG Exam General: Alert Dental: WNL, Other (Missinf some teeth) Mouth Opening: Greater than 4 Fingerbreadths Neck Mobility: Normal Mallampati classification: II Thyromental Distance: greater than 6 cm Respiratory: Lungs clear Cardiovascular: Regular rate Neurological: Normal speech Mental/Cognitive Status: Alert/Oriented X3 Cognitive Status: Within normal limits Plan Anesthesia Type: MAC Consent for Procedure(s) Verified and Reviewed: Yes Code Status: Attempt Resuscitation ASA classification: 2-Mild systemic disease Is this case an emergency?: No
[2018-04-09] MEDS ORDERED: EPINEPHrine 1 MG/ML AMP IR ONE (08:33)
[2018-04-09] MEDS ORDERED: BRIMONIDINE 0.2% OPHTH DROPS 5 ML OPTH ONE (08:33)
[2018-04-09] MEDS ORDERED: CHONDR SULF/HYALURONATE SYRINGE IO ONE (08:34)
[2018-04-09] MEDS ORDERED: BSS/LIDOCAINE/EPINEPHRINE 1 ML SYRINGE IO ONE (08:34)
[2018-04-09] MEDS ORDERED: TIMOLOL 0.5% OPHTH DROPS OPTH ONE (08:34)
[2018-04-09] MEDS ORDERED: MIDAZOLAM 2 MG/2 ML VIAL IVP ONE (08:40)
[2018-04-09] MEDS ORDERED: fentaNYL 100 MCG/2 ML VIAL IVP ONE (08:40)
[2018-04-09 09:30] VITALS: BP 140/68
--- NOTE | 2018-04-09 10:00 | OPERATIVE REPORT ---
DATE OF SERVICE: 04/09/2018 Physician: Ronaldo Black MD PREOPERATIVE DIAGNOSIS: Visually significant cataract, left eye. Cataract surgery was performed on the right eye on 11/01/2007 by a different surgeon. POSTOPERATIVE DIAGNOSIS: Visually significant cataract, left eye. PROCEDURE: Phacoemulsification with posterior chamber intraocular lens implant, left eye. SURGEON: Dr. Ronaldo Black. ANESTHESIA: Monitored anesthesia care. COMPLICATIONS: None. OPERATIVE INDICATIONS: This is an 82-year-old man with progressive vision loss in the left eye due t o 3+ nuclear sclerotic and 3+ cortical cataract. Best corrected visual acuity was 20/125 glaring to 20/200. Indications for surgery were overall decrease in vision, difficulty driving at night because of the headlights of other vehicles and/or street lights, difficulty with glare or bright lights in any situation, difficulty tracking a golf ball. He was consented at length concerning risks and bene fits of cataract surgery, after which he expressed a desire to proceed with surgery. OPERATIVE PROCEDURE: Patient was taken into OR #3 and placed under monitored anesthesia care. A pancho gical timeout was conducted confirming correct patient, correct procedure, and correct surgical site. He was given topical anesthesia and then prepped and draped in usual sterile fashion. The eye was entered at the 6 and 3-o'clock positions. Intracameral Shugarcaine was injected into the anterior ch rylee, followed by Viscoat. A continuous-tear curvilinear capsulorrhexis was performed. The nucleus was hydrodissected and phacoemulsified. The cortex was evacuated using automated infusion and aspir ation. Provisc was injected in the capsular bag, and a 20.5-diopter intraocular lens inserted in the bag. Approximately 0.8 mL of a mixture of triamcinolone, moxifloxacin, and vancomycin was injected subconjunctivally in the superior quadrant for infection and inflammation prophylaxis. I and A was u sed to evacuate the viscoelastic materials. The eye was inflated to physiologic pressure using a bal anced salt solution and found to be watertight. Patient was taken from the operating room in good co ndition and given postop instructions. TD: 04/09/2018 08:54
== END 2018-04-09 07:19 | disposition home or self-care (01) ==
LOC: SDS 07:18
PROVIDERS: ATTEND Ophthalmology
PROC: 08RK3JZ Replacement of Left Lens with Synthetic Substitute, Percutaneous Approach (ICD-10-PCS; principal; 2018-04-09 08:30)
DX: H25.812 Combined forms of age-related cataract, left eye (principal); I10 Essential (primary) hypertension; E78.00 Pure hypercholesterolemia, unspecified; N40.0 Benign prostatic hyperplasia without lower urinary tract symptoms; Z95.1 Presence of aortocoronary bypass graft; Z87.891 Personal history of nicotine dependence
CPT/HCPCS: 66984; A9270; J3490; V2632

== ENCOUNTER 2019-03-16 11:06 | Outpatient (CLI) | payer MEDICARE ==
[2019-03-16 18:01] LABS: BASOPHILS # (AUTO) 0.1 10^3/uL (0.0-0.1); BASOPHILS % (AUTO) 0.5 %; EOSINOPHILS # (AUTO) 0.2 10^3/uL (0.0-0.7); EOSINOPHILS % (AUTO) 1.5 %; HGB - HEMOGLOBIN 13.3 g/dL (14.0-18.0); LYMPHOCYTES # (AUTO) 2.3 10^3/uL (1.5-3.5); LYMPHOCYTES % (AUTO) 22.8 %; MEAN CORPUSCULAR HEMOGLOBIN 25.7 pg (27.0-31.0); MEAN CORPUSCULAR HGB CONC 31.1 g/dL (32.0-36.0); MEAN CORPUSCULAR VOLUME 82.8 fL (80.0-94.0); MEAN PLATELET VOLUME 11.6 fL (7.4-11.4); MONOCYTES # (AUTO) 0.6 10^3/uL (0.0-1.0); NEUTROPHILS # (AUTO) 6.8 10^3/uL (1.5-6.6); NEUTROPHILS % (AUTO) 68.9 %; PLT - PLATELET COUNT 207 10^3/uL (130-450); RED BLOOD COUNT 5.17 10^6/uL (4.70-6.10); RED CELL DISTRIBUTION WIDTH 17.6 % (12.0-15.0); WHITE BLOOD COUNT 9.9 x10^3/uL (4.8-10.8)
[2019-03-16 18:06] LABS: % IRON SATURATION 9 % (20-50); ALBUMIN 4.4 g/dL (3.2-5.5); ALBUMIN/GLOBULIN RATIO 1.3 (1.0-2.2); ALKALINE PHOSPHATASE 61 IU/L (42-121); ALT ALANINE AMINOTRANSFERASE 21 IU/L (10-60); AST ASPARTATE AMINOTRANSFERASE 22 IU/L (10-42); BILIRUBIN,TOTAL 0.8 mg/dL (0.2-1.0); BUN - BLOOD UREA NITROGEN 18 mg/dL (6-20); CALCIUM 8.9 mg/dL (8.5-10.3); CARBON DIOXIDE - CO2 29 mmol/L (21-32); CHLORIDE 105 mmol/L (101-111); CHOL/HDL RATIO 2.7 (<5.0); CHOLESTEROL 127 mg/dL; CREATININE 0.9 mg/dL (0.6-1.2); GFR - MDRD 80 (>89); GLUCOSE 116 mg/dL (70-100); HDL CHOLESTEROL 47 mg/dL; IRON 37 ug/dL (45-182); LDL CHOLESTEROL,CALCULATED 61 mg/dL; LDL/HDL RATIO 1.3 (<3.6); SODIUM 141 mmol/L (135-145); TOTAL IRON BINDING CAPACITY 395 ug/dL (250-450); TOTAL PROTEIN 7.7 g/dL (6.7-8.2); TRANSFERRIN 282 mg/dL (180-329); VLDL CHOLESTEROL 19 mg/dL
== END 2019-03-16 11:07 | disposition home or self-care (01) ==
LOC: LAB.S 11:06
PROVIDERS: ATTEND Family Medicine
DX: E78.2 Mixed hyperlipidemia (principal); D50.9 Iron deficiency anemia, unspecified
CPT/HCPCS: 36415; 80053; 80061; 83540; 83721; 84466; 85025

== ENCOUNTER 2019-10-31 10:57 | Inpatient (IN) | payer MEDICARE ==
--- NOTE | 2019-10-31 13:31 | ED Physician Documentation ---
PD HPI GI BLEED - Stated complaint Stated Complaint: BLOOD IN STOOL - Chief complaint Chief Complaint: Abd Pain - History obtained from History obtained from: Patient, Family - History of Present Illness Timing - onset: Enter time (0230), Last night Timing - duration: Hours Timing - details: Abrupt onset, Still present Associated symptoms: BRBPR Contributing factors: Stress. No: Recent antibiotics, Alcohol use, Aspirin use, NSAID use, Anticoagulated Improved by: BM Similar symptoms before: Diagnosis (GI bleeding with indeterminant site.) Recently seen: Not recently seen - Additional information Additional information: 84-year-old male with a prior history of GI bleeding has had bright red blood per rectum 3 times in the middle of the night. 1:30, 3:30 and 7:30. He last had blood per rectum at 7:30 AM. He comes to the emergency department now with a chief complaint of bloody bowel movement and lightheadedness. He has had prior issues with GI bleeding and a site has not been found. His last admission was at a hospital in [facility] where he required 19 units for transfusion. He does not recall having upper GI scoping done except for about 15 to 20 years ago. Review of Systems Constitutional: denies: Fever, Chills, Myalgias Eyes: denies: Decreased vision Ears: denies: Ear pain Nose: denies: Rhinorrhea / runny nose, Congestion Throat: denies: Sore throat Cardiac: denies: Chest pain / pressure, Palpitations Respiratory: denies: Dyspnea, Cough GI: reports: Bloody / black stool. denies: Abdominal Pain, Nausea, Vomiting, Constipation, Diarrhea : denies: Dysuria, Frequency PD PAST MEDICAL HISTORY - Past Medical History Past Medical History: Yes Cardiovascular: Hypertension, High cholesterol, Atrial fibrillation, Other Respiratory: None Neuro: None Endocrine/Autoimmune: None GI: GI bleed, Diverticulitis : None HEENT: Chronic hearing loss Psych: None Musculoskeletal: None Derm: None - Past Surgical History Past Surgical History: Yes General: Other Cardiovascular: CABG HEENT: Cataracts - Present Medications Home Medications: Ambulatory Orders Medication Instructions Recorded Confirmed Omeprazole 20 mg PO DAILY 09/30/17 10/31/19 Atorvastatin Calcium 80 mg PO DAILY 10/01/17 10/31/19 Benazepril HCl 40 mg PO DAILY 10/01/17 10/31/19 Metoprolol Tartrate 100 mg PO DAILY 10/01/17 10/31/19 Multivitamin [Multiple Vitamins] 1 each PO DAILY 10/31/19 10/31/19 - Allergies Allergies/Adverse Reactions: Allergies Allergy/AdvReac Type Severity Reaction Status Date / Time Penicillins Allergy Unknown Verified 09/30/17 23:28 - Social History Does the pt smoke?: No Smoking Status: Never smoker Does the pt drink ETOH?: Yes Does the pt have substance abuse?: No - Immunizations Immunizations are current?: No - POLST Patient has POLST: No PD ED PE NORMAL - Vitals Vital signs reviewed: Yes (hypertensive) - General General: Alert and oriented X 3, No acute distress, Well developed/nourished - HEENT HEENT: Atraumatic, PERRL, EOMI - Neck Neck: Supple, no meningeal sign - Cardiac Cardiac: RRR, No murmur - Respiratory Respiratory: No respiratory distress, Clear bilaterally - Abdomen Abdomen: Normal bowel sounds, Soft, Non tender, Non distended, No organomegaly - Rectal Rectal: Other (sphincter tone is normal there is dark blood on the rectum and red old blood on the glove. ) - Back Back: No CVA TTP, No spinal TTP - Derm Derm: Normal color, Warm and dry, No rash - Extremities Extremities: No deformity, No edema - Neuro Neuro: Alert and oriented X 3, payroll specialist 2-12 intact, No motor deficit, No sensory deficit, Normal speech Eye Opening: Spontaneous Motor: Obeys Commands Verbal: Oriented GCS Score: 15 - Psych Psych: Normal affect, Other (mood is irritated ) Results - Vitals Vitals: Vital Signs - 24 hr 10/31/19 10/31/19 10/31/19 11:16 11:45 14:54 Temperature 36.8 C Heart Rate 97 95 107 H Respiratory 16 18 19 Rate Blood Pressure 158/84 H 166/92 H 146/83 H O2 Saturation 98 99 97 10/31/19 10/31/19 15:04 15:25 Temperature Heart Rate 86 Respiratory 18 Rate Blood Pressure 78/43 L 92/74 O2 Saturation 97 Oxygen O2 Source Room air - Labs Labs: Laboratory Tests 10/31/19 10/31/19 10/31/19 11:32 11:32 11:32 WBC 9.4 RBC 4.15 L Hgb 11.7 L Hct 36.1 L MCV 87.0 MCH 28.2 MCHC 32.4 RDW 13.9 Plt Count 172 MPV 11.5 H Neut # (Auto) 7.4 H Lymph # (Auto) 1.4 L Taliaferro # (Auto) 0.5 Eos # (Auto) 0.0 Baso # (Auto) 0.0 Absolute Nucleated RBC 0.00 Nucleated RBC % 0.0 Sodium 141 Potassium 3.7 Chloride 109 Carbon Dioxide 25 Anion Gap 7.0 BUN 29 H Creatinine 0.9 Estimated GFR (MDRD) 80 L Glucose 111 H Calcium 8.7 Total Bilirubin 0.7 AST 17 ALT 17 Alkaline Phosphatase 61 Total Protein 7.0 Albumin 3.7 Globulin 3.3 Albumin/Globulin Ratio 1.1 Lipase 31 Blood Type O POSITIVE Antibody Screen NEGATIVE PD MEDICAL DECISION MAKING - ED course Complexity details: reviewed old records, reviewed results, re-evaluated patient, considered differential, d/w patient, d/w family ED course: 84-year-old male with acute GI bleeding of unknown source appears to have some dark blood per rectum and the BUN is mildly elevated my concern is for upper GI bleeding.I have gone back into the patient's room to discuss with him a plan for observation repeat blood work and the patient is refusing. He wants to go home and wants to leave AGAINST MEDICAL ADVICE. Despite repeated conversations with the patient and with his family he is not willing to stay in the hospital. He attempts to leave AGAINST MEDICAL ADVICE and has a syncopal episode immediately. He is brought back into his room and back into the bed and after a second and third discussion with him and his family he is decided to stay. His family has wished him to stay all along. The patient did get frustrated with the length of time it was taking for his visit to be completed as it was busy in the emergency department at the time he arrived. Dr. Estrella the surgeon is consulted in the case and will follow with medicine. Dr. Aguayo is consulted in the case and graciously agrees to care for the patient in the hospital. Departure - Departure Disposition: ED Place in Observation Clinical Impression: GI bleed Qualifiers: GI bleed type/associated pathology: melena Qualified Code(s): K92.1 - Melena Condition: Stable
[2019-10-31 13:35] LABS: BASOPHILS % (AUTO) 0.3 %; EOSINOPHILS % (AUTO) 0.1 %; HGB - HEMOGLOBIN 11.7 g/dL (14.0-18.0); LYMPHOCYTES # (AUTO) 1.4 10^3/uL (1.5-3.5); LYMPHOCYTES % (AUTO) 15.2 %; MEAN CORPUSCULAR HEMOGLOBIN 28.2 pg (27.0-31.0); MEAN CORPUSCULAR HGB CONC 32.4 g/dL (32.0-36.0); MEAN PLATELET VOLUME 11.5 fL (7.4-11.4); MONOCYTES # (AUTO) 0.5 10^3/uL (0.0-1.0); MONOCYTES % (AUTO) 5.7 %; NEUTROPHILS # (AUTO) 7.4 10^3/uL (1.5-6.6); NEUTROPHILS % (AUTO) 78.3 %; PLT - PLATELET COUNT 172 10^3/uL (130-450); RED BLOOD COUNT 4.15 10^6/uL (4.70-6.10); RED CELL DISTRIBUTION WIDTH 13.9 % (12.0-15.0); WHITE BLOOD COUNT 9.4 x10^3/uL (4.8-10.8)
[2019-10-31 13:46] LABS: ALBUMIN 3.7 g/dL (3.2-5.5); ALBUMIN/GLOBULIN RATIO 1.1 (1.0-2.2); BILIRUBIN,TOTAL 0.7 mg/dL (0.2-1.0); CALCIUM 8.7 mg/dL (8.5-10.3); CREATININE 0.9 mg/dL (0.6-1.2)
[2019-10-31] MEDS ORDERED: PANTOPRAZOLE 40 MG VIAL IVP STA (14:27)
[2019-10-31] MEDS ORDERED: SODIUM CHLORIDE 0.9% 1,000 ML IV STA (14:28)
[2019-10-31] MEDS ORDERED: ONDANSETRON 4 MG/2 ML VIAL IVP PRN (15:54)
--- NOTE | 2019-10-31 15:58 | HISTORY & PHYSICAL EXAMINATION ---
Chief Complaint - Chief Complaint Chief Complaint: GI bleed History of Present Illness - Admitted From Admitted From:: Home - History Obtained From Records Reviewed: Yes History obtained from: Patient, ER Physician, EMR - History of Present Illness HPI Comment/Other: This is a 84-year-old male with a past medical history significant for coronary artery disease status post CABG, hypertension, paroxysmal atrial fibrillation, recurrent diverticular bleed who presents today complaining of bright red blood per rectum. He states he had 3 episodes of bleeding this morning that began at 3:30 AM. He does not recall how much blood he lost but given he continued to bleed, he came to the emergency department. He reports he has had recurrent bleeding for the past 20 years. He was hospitalized at [facility] in [place] for 2 weeks and he states he required 19 units of packed red blood cells at that time. He underwent a colonoscopy which did not show any active bleeding. He was hospitalized here 5 months prior to that admission for bright red blood per rectum and also underwent a colonoscopy which showed diverticulosis but no active bleeding. He reports a surgeon at [facility] in [place] discussed hemicolectomy with the patient states he does not want surgery as they use jose for the anastomosis and he has been seeing on TV that there can be severe consequences from these jose. He currently reports no abdominal pain and denies nausea/vomiting. He reports no hematuria or other signs of bleeding. He denies any aspirin use or anticoagulation. He also denies the use of NSAIDs. He does drink an alcoholic beverage every day but denies significant alcohol use. He reports feeling dizzy and lightheaded at times. Denies any palpitations or chest pain. He does not recall the syncopal episode in the emergency department. In the emergency department, he was initially tachycardic but normotensive. His hemoglobin came back at 11.6. The patient was adamant on leaving and was willing to leave AGAINST MEDICAL ADVICE despite recommendation from the emergency room provider and his family to stay for hospitalization. As he was being put into the wheelchair to leave, he had a brief episode of syncope. After further discussion with his family, he was reluctantly agreeable to being admitted. Shortly after arrival to the floor, he had another bloody bowel movement. We did discuss goals of care and the patient states that he is a DNR. History - Past Medical History Cardiovascular: reports: Hypertension, High cholesterol, Atrial fibrillation, Other Respiratory: reports: None Neuro: reports: None Endocrine/Autoimmune: reports: None GI: reports: GI bleed, Diverticulitis : reports: None HEENT: reports: Chronic hearing loss Psych: reports: None Musculoskeletal: reports: None Derm: reports: None MRSA Hx?: No - Past Surgical History General: reports: Other Cardiovascular: reports: CABG HEENT: reports: Cataracts - Family & Social History Family History Comment/Other: He was adopted and so he is unaware of his family history. Living arrangement: At home Living Situation: Alone Social History Notes: He has been living on [facility] for the past 30 years. He has 2 children who live in [facility]. He did smoke a half a pack a day but quit in the 1960s after smoking for approximately 10 to 15 years. He does drink alcoholic beverage every day. He drinks [employer]'s 7. Occasionally will have a beer as well. He reports that he very rarely will drink more than 1 beverage a day and has never gone through withdrawal. - POLST Patient has POLST: No Meds/Allgy - Home Medications Home Medications: Ambulatory Orders Medication Instructions Recorded Confirmed Omeprazole 20 mg PO DAILY 09/30/17 10/31/19 Atorvastatin Calcium 80 mg PO DAILY 10/01/17 10/31/19 Benazepril HCl 40 mg PO DAILY 10/01/17 10/31/19 Metoprolol Tartrate 100 mg PO DAILY 10/01/17 10/31/19 Multivitamin [Multiple Vitamins] 1 each PO DAILY 10/31/19 10/31/19 - Allergies Allergies/Adverse Reactions: Allergies Allergy/AdvReac Type Severity Reaction Status Date / Time Penicillins Allergy Unknown Verified 09/30/17 23:28 Review of Systems - Constitutional Constitutional: denies: Fatigue, Fever, Chills, Weakness - Ears, Nose & Throat Ears, Nose & Throat: denies: Nasal congestion, Sore throat - Cardiovascular Cariovascular: reports: Lightheadedness, Syncope. denies: Chest pain, Edema, Exertional dyspnea, Decr. exercise tolerance - Respiratory Respiratory: denies: Cough, SOB at rest, SOB with exertion - Gastrointestinal Gastrointestinal: reports: Rectal bleeding, Bloody stools. denies: Abdominal pain, Abdominal distention, Nausea, Vomiting, Bile emesis, David blood emesis - Genitourinary Genitourinary: denies: Dysuria, Frequency, Hematuria - Musculoskeletal Musculoskeletal: denies: Muscle pain - Integumentary Integumentary: denies: Rash - Neurological Neurological: reports: Dizziness. denies: General weakness, Focal weakness - Hematologic/Lymphatic Hematologic/Lymphatic: reports: Bleeding tendencies - All Other Systems All Other Systems: reports: Reviewed and negative Prior Level of Functionality: He is independent with his ADL's. Exam - Vital Signs Reviewed Vital Signs: Yes Vital Signs: Vital Signs x48h Temp Pulse Resp BP Pulse Ox 10/31/19 15:25 86 18 92/74 97 10/31/19 15:04 78/43 L 10/31/19 14:54 107 H 19 146/83 H 97 10/31/19 11:45 95 18 166/92 H 99 10/31/19 11:16 36.8 C 97 16 158/84 H 98 - Physical Exam General Appearance: positive: No acute distress, Alert Eyes Bilateral: positive: Normal inspection ENT: positive: ENT inspection nml Neck: positive: Nml inspection Respiratory: positive: No respiratory distress. negative: Wheezes, Rales Cardiovascular: positive: Regular rate & rhythm, No murmur. negative: Tachycardia, Bradycardia Abdomen: positive: Non-tender, No distention. negative: Tenderness, Guarding, Rebound Skin: positive: Warm, Dry Extremities: positive: Full ROM, No pedal edema Neurologic/Psychiatric: positive: Oriented x3, Motor nml, Disoriented to person, Disoriented to place. negative: Disoriented to time Conclusion/Plan - Problem List (1) Lower GI bleed Conclusion/Plan: He presents once again with bright red blood per rectum concerning for a diverticular bleed. He did have a colonoscopy back in September 2017 which showed severe diverticulosis in the sigmoid colon and moderate diverticulosis throughout the colon. There was no evidence of bleeding at that time. At this time, we will start him on Protonix IV twice daily empirically although there is low suspicion for upper GI bleed at this time. We will continue to trend his hemoglobin and monitor for signs of bleeding. We will start him on a clear liquid diet for time being. If he continues to have significant bleeding, we will obtain a CT angiogram of the abdomen and pelvis as if there is active extravasation, he may benefit from transfer to a facility with interventional radiology for embolization given he has had recurrent bleeding on and off now for over 20 years. He has clearly stated that he is not interested in a hemicolectomy. (2) Syncope Conclusion/Plan: Suspect this is likely due to his GI bleed. He is currently normotensive. We will check orthostatics at this time given they will likely be positive as he continues to bleed. We will monitor him on telemetry. Check EKG and troponin. If there is any concern for cardiac etiology, will obtain an echocardiogram. (3) Anemia Conclusion/Plan: His hemoglobin is decreased 11.6 but this is actually higher than his baseline. This likely does not reflect his recent bleeding. We will trend his hemoglobin every 8 hours and transfuse as needed for goal hemoglobin greater than 8 given his history of coronary artery disease. Type and screen has already been obtain ed. SCDs for DVT prophylaxis. No chemical DVT prophylaxis given the bleeding. He is agreeable to transfusion if need be. (4) History of coronary artery disease Conclusion/Plan: History of coronary artery disease with CABG x3 with the most recent being perfo rmed at [facility] in [place] in 2013. He is currently not on aspirin given his recurrent GI bleeds. We will continue his home Lipitor. (5) Hypertension Conclusion/Plan: He is on benazepril and metoprolol at home. We will hold these at this time given his GI bleed and the fact that he is currently normotensive. Qualifiers: Hypertension type: secondary to other renal disorders Qualified Code(s): I1 5.1 - Hypertension secondary to other renal disorders; N28.89 - Other specified disorders of kidney and ureter (6) Paroxysmal atrial fibrillation Conclusion/Plan: He is currently rate controlled and in a sinus rhythm. He did not take his home metoprolol this morning. He is not on anticoagulation given his recurrent GI bleed. Will hold his home metoprolol given he is normotensive and just concern for ongoing GI bleed so we do not want to mask tachycardia from bleeding. Monitor on telemetry. - Lab Results Lab results reviewed: Yes Clemente Bones: 10/31/19 16:10 10/31/19 11:32 Core Measures - Anticipated LOS I expect patient to be DC'd or transferred within 96 hours.: Yes - Issues Hospital Issues and Management Plan: 84-year-old male who presents with bright red blood per rectum concerning for diverticular bleed. We will observe him overnight for further bleeding. [facility] iqbal surgery is been consulted for possible colonoscopy if need be - DVT/VTE - Prophylaxis VTE/DVT Device ordered at admit?: Yes VTE/DVT Prophylaxis med ordered at admit?: No Not Ordered - Medical Reason: Contraindicated
[2019-10-31 16:18] LABS: HGB - HEMOGLOBIN 11.1 g/dL (14.0-18.0)
[2019-10-31 16:24] LABS: INR 1.2 (0.8-1.2); PT - PROTHROMBIN TIME 13.8 secs (9.9-12.6)
--- NOTE | 2019-10-31 18:00 | HISTORY & PHYSICAL EXAMINATION ---
Chief Complaint - Chief Complaint Chief Complaint: lower gi bleed again GI Bleed Admit Template - Admitted From Admitted from: ED - History Obtained From History obtained from: Patient - History of Present Illness Bleeding quality: reports: David blood stool Context-bleeding started w/: reports: Spontaneous Timing: reports: Abrupt onset (Recurrent bloody stool. He states he has history of this for nearly 20 years. He has had past extensive work up with endoscopy revealing diverticulosis; however, site of bleeding not identified. He takes medications for his heart. Hx bypass. He denies taking blood thiners.) PMH/PSH - Past Medical History Cardiovascular: positive: Hypertension, High cholesterol, Atrial fibrillation, Other Respiratory: positive: None Neuro: positive: None Endocrine/Autoimmune: positive: None GI: positive: GI bleed, Diverticulitis : positive: None HEENT: positive: Chronic hearing loss Psych: positive: None Musculoskeletal: positive: None Derm: positive: None MRSA Hx?: No - Past Surgical History General: positive: Other Cardiovascular: positive: CABG HEENT: positive: Cataracts Social & Family Hx - Social History Does the pt smoke?: No Smoking Status: Never smoker Does the pt drink ETOH?: Yes Does the pt have substance abuse?: No - POLST Patient has POLST: No Meds/Allgy - Home Medications Home Medications: Ambulatory Orders Medication Instructions Recorded Confirmed Omeprazole 20 mg PO DAILY 09/30/17 10/31/19 Atorvastatin Calcium 80 mg PO DAILY 10/01/17 10/31/19 Benazepril HCl 40 mg PO DAILY 10/01/17 10/31/19 Metoprolol Tartrate 100 mg PO DAILY 10/01/17 10/31/19 Multivitamin [Multiple Vitamins] 1 each PO DAILY 10/31/19 10/31/19 - Allergies Allergies/Adverse Reactions: Allergies Allergy/AdvReac Type Severity Reaction Status Date / Time Penicillins Allergy Unknown Verified 09/30/17 23:28 Review of Systems - Other Findings Other Findings: as above otherwise unremarkable Exam - Vital Signs Vital Signs: Vital Signs x48h Temp Pulse Pulse Resp BP BP Pulse Ox 10/31/19 16:50 36.8 C 85 16 156/66 H 98 10/31/19 16:40 86 122/70 97 10/31/19 15:25 86 18 92/74 97 10/31/19 15:04 78/43 L 10/31/19 14:54 107 H 19 146/83 H 97 10/31/19 11:45 95 18 166/92 H 99 10/31/19 11:16 36.8 C 97 16 158/84 H 98 - Physical Exam General Appearance: positive: No acute distress, Alert Eyes Bilateral: positive: Normal inspection, PERRL Neck: positive: No JVD Respiratory: positive: No respiratory distress Abdomen: positive: Non-tender, No distention Extremities: positive: No pedal edema Neurologic/Psychiatric: positive: Oriented x3 Results - Lab Results Fish Bones: 10/31/19 16:10 10/31/19 11:32 Other Lab Results: Lab Results x24hrs 10/31/19 10/31/19 10/31/19 Range/Units 16:10 16:10 11:32 WBC (4.8-10.8) x10^3/uL RBC (4.70-6.10) 10^6/uL Hgb 11.1 L (14.0-18.0) g/dL Hct 34.4 L (42.0-52.0) % MCV (80.0-94.0) fL MCH (27.0-31.0) pg MCHC (32.0-36.0) g/dL RDW (12.0-15.0) % Plt Count (130-450) 10^3/uL MPV (7.4-11.4) fL Neut # (Auto) (1.5-6.6) 10^3/uL Lymph # (Auto) (1.5-3.5) 10^3/uL [place] # (Auto) (0.0-1.0) 10^3/uL Eos # (Auto) (0.0-0.7) 10^3/uL Baso # (Auto) (0.0-0.1) 10^3/uL Absolute Nucleated RBC x10^3/uL Nucleated RBC % /100WBC PT 13.8 H (9.9-12.6) secs INR 1.2 (0.8-1.2) Sodium (135-145) mmol/L Potassium (3.5-5.0) mmol/L Chloride (101-111) mmol/L Carbon Dioxide (21-32) mmol/L Anion Gap (6-13) BUN (6-20) mg/dL Creatinine (0.6-1.2) mg/dL Estimated GFR (MDRD) (>89) Glucose (70-100) mg/dL Calcium (8.5-10.3) mg/dL Total Bilirubin (0.2-1.0) mg/dL AST (10-42) IU/L ALT (10-60) IU/L Alkaline Phosphatase (42-121) IU/L Total Protein (6.7-8.2) g/dL Albumin (3.2-5.5) g/dL Globulin (2.1-4.2) g/dL Albumin/Globulin Ratio (1.0-2.2) Lipase (22-51) U/L Blood Type O POSITIVE Antibody Screen NEGATIVE 10/31/19 10/31/19 Range/Units 11:32 11:32 WBC 9.4 (4.8-10.8) x10^3/uL RBC 4.15 L (4.70-6.10) 10^6/uL Hgb 11.7 L (14.0-18.0) g/dL Hct 36.1 L (42.0-52.0) % MCV 87.0 (80.0-94.0) fL MCH 28.2 (27.0-31.0) pg MCHC 32.4 (32.0-36.0) g/dL RDW 13.9 (12.0-15.0) % Plt Count 172 (130-450) 10^3/uL MPV 11.5 H (7.4-11.4) fL Neut # (Auto) 7.4 H (1.5-6.6) 10^3/uL Lymph # (Auto) 1.4 L (1.5-3.5) 10^3/uL [place] # (Auto) 0.5 (0.0-1.0) 10^3/uL Eos # (Auto) 0.0 (0.0-0.7) 10^3/uL Baso # (Auto) 0.0 (0.0-0.1) 10^3/uL Absolute Nucleated RBC 0.00 x10^3/uL Nucleated RBC % 0.0 /100WBC PT (9.9-12.6) secs INR (0.8-1.2) Sodium 141 (135-145) mmol/L Potassium 3.7 (3.5-5.0) mmol/L Chloride 109 (101-111) mmol/L Carbon Dioxide 25 (21-32) mmol/L Anion Gap 7.0 (6-13) BUN 29 H (6-20) mg/dL Creatinine 0.9 (0.6-1.2) mg/dL Estimated GFR (MDRD) 80 L (>89) Glucose 111 H (70-100) mg/dL Calcium 8.7 (8.5-10.3) mg/dL Total Bilirubin 0.7 (0.2-1.0) mg/dL AST 17 (10-42) IU/L ALT 17 (10-60) IU/L Alkaline Phosphatase 61 (42-121) IU/L Total Protein 7.0 (6.7-8.2) g/dL Albumin 3.7 (3.2-5.5) g/dL Globulin 3.3 (2.1-4.2) g/dL Albumin/Globulin Ratio 1.1 (1.0-2.2) Lipase 31 (22-51) U/L Blood Type Antibody Screen Impression/Plan - Problem List Problem List: Recurrent lower gi bleed. History of lower gi bleed for many years. History of many colonoscopies showing diverticulosis without source identified. He denies upper Gi symptoms Will follow. His course will likely be similar to past courses with spontaneous resolution of the bleeding. Additional endoscopy will unlikely be beneficial. If he continues to bleed, become unstable, plan subtotal colectomy / ileostomy. This would be a morbid procedure for him and will unlikely be needed If there is concern for upper Gi bleed NGT lavage could be done. He denies upper gi symptoms and likely has recurrent lower gi bleeding
[2019-10-31] MEDS ORDERED: ACETAMINOPHEN 325 MG TABLET PO PRN (18:28)
[2019-10-31] MEDS: LACTATED RINGERS 1,000 ML IV SCH (18:37)
[2019-10-31] MEDS: SODIUM CHLORIDE FLUSH 0.9% 10 ML SYRINGE IVP SCH (18:37)
[2019-10-31 20:25] LABS: HGB - HEMOGLOBIN 10.5 g/dL (14.0-18.0)
[2019-10-31] MEDS: SODIUM CHLORIDE FLUSH 0.9% 10 ML SYRINGE IVP PRN (21:10)
[2019-10-31] MEDS: PANTOPRAZOLE 40 MG VIAL IVP SCH (21:10)
[2019-11-01] MEDS: SODIUM CHLORIDE FLUSH 0.9% 10 ML SYRINGE IVP SCH ×3 (01:06→17:25)
--- NOTE | 2019-11-01 01:44 | Ultrasound Report ---
Reason: syncope Procedure Date: 10/31/2019 Accession Number: [id number] / [id number] Procedure: US - Carotid Doppler Complete CPT Code: Final Report FULL RESULT: EXAM: BILATERAL CAROTID AND VERTEBRAL ARTERY DUPLEX DOPPLER ULTRASOUND: EXAM DATE: 10/31/2019 11:00 PM CLINICAL HISTORY: Syncope. COMPARISON: None. TECHNIQUE: Grayscale imaging, color Doppler, and duplex spectral Doppler were used to evaluate the carotid and vertebral arteries bilaterally. Static images were obtained. FINDINGS: Minimal bilateral carotid plaquing. Normal antegrade flow is present in bilateral vertebral arteries. VELOCITIES (cm/s): Right CCA mid: PSV 83 cm/s CCA dist: PSV 104 cm/s ICA prox: PSV 97 cm/s, EDV 16 cm/s ICA mid: PSV 76 cm/s, EDV 15 cm/s ICA dist: PSV 95 cm/s, EDV 20 cm/s ECA: PSV 98 cm/s Vert: PSV 84 cm/s ICA/CCA: 0.93 Left CCA mid: PSV 97 cm/s CCA dist: PSV 104 cm/s ICA prox: PSV 94 cm/s, EDV 15 cm/s ICA mid: PSV 85 cm/s, EDV 14 cm/s ICA dist: PSV 88 cm/s, EDV 25 cm/s ECA: PSV 99 cm/s Vert: PSV 89 cm/s ICA/CCA: 0.90 ICA diameter stenosis: Right: <50% by velocity and <70% by NASCET criteria. Left: <50% by velocity and <70% by NASCET criteria. IMPRESSION: 1. Minimal bilateral carotid artery plaquing. 2. In the right carotid artery there are no elevated carotid artery velocities to suggest hemodynamically significant stenosis. 3. In the left carotid artery there are no elevated carotid artery velocities to suggest hemodynamically significant stenosis. 4. Normal antegrade flow is present in bilateral vertebral arteries. General Recommendations: Stenosis =50% ICA - Follow-up ultrasound 6-12 months Stenosis <50% ICA - High Risk Patient with plaque - Follow-up ultrasound 1-2 years Normal Study but High Risk Patient - Follow-up ultrasound 3-5 years Management recommendations and diagnostic criteria are based on current IAC endorsed standards in Carotid Artery Stenosis: Grayscale and Doppler Ultrasound Diagnosis. Validated velocity measurements with angiographic measurements and velocity criteria are extrapolated from diameter data as defined by the Society of Radiologists in Ultrasound Consensus Conference Radiology 2003; 229;340-346. RADIA
[2019-11-01] MEDS: LACTATED RINGERS 1,000 ML IV SCH ×2 (04:34→17:20)
[2019-11-01 06:08] LABS: BASOPHILS % (AUTO) 0.3 %; EOSINOPHILS # (AUTO) 0.1 10^3/uL (0.0-0.7); EOSINOPHILS % (AUTO) 0.5 %; HGB - HEMOGLOBIN 9.6 g/dL (14.0-18.0); LYMPHOCYTES # (AUTO) 1.9 10^3/uL (1.5-3.5); LYMPHOCYTES % (AUTO) 20.8 %; MEAN CORPUSCULAR HEMOGLOBIN 29.3 pg (27.0-31.0); MEAN CORPUSCULAR HGB CONC 33.4 g/dL (32.0-36.0); MEAN CORPUSCULAR VOLUME 87.5 fL (80.0-94.0); MEAN PLATELET VOLUME 10.3 fL (7.4-11.4); MONOCYTES # (AUTO) 0.5 10^3/uL (0.0-1.0); MONOCYTES % (AUTO) 5.3 %; NEUTROPHILS # (AUTO) 6.8 10^3/uL (1.5-6.6); NEUTROPHILS % (AUTO) 72.7 %; PLT - PLATELET COUNT 138 10^3/uL (130-450); RED BLOOD COUNT 3.28 10^6/uL (4.70-6.10); WHITE BLOOD COUNT 9.3 x10^3/uL (4.8-10.8)
[2019-11-01 06:25] LABS: CALCIUM 8.4 mg/dL (8.5-10.3); CREATININE 0.9 mg/dL (0.6-1.2); MAGNESIUM 1.8 mg/dL (1.7-2.8); PHOSPHORUS 3.1 mg/dL (2.5-4.6)
[2019-11-01] MEDS ORDERED: POTASSIUM CHLORIDE 20 MEQ TABLET PO ONE (07:31)
[2019-11-01] MEDS: ATORVASTATIN 40 MG TABLET PO SCH (08:39)
[2019-11-01] MEDS: MULTIVITAMIN TABLET PO SCH (08:40)
[2019-11-01] MEDS: PANTOPRAZOLE 40 MG VIAL IVP SCH ×2 (08:41→20:23)
[2019-11-01 08:48] LABS: HGB - HEMOGLOBIN 9.4 g/dL (14.0-18.0)
[2019-11-01] MEDS ORDERED: IOVERSOL 320 100 ML VIAL IVP ONE ×2 (08:48→11:08)
--- NOTE | 2019-11-01 09:27 | PROVIDER PROGRESS NOTE ---
Subjective - Prog Note Date Prog Note Date: 11/01/19 - Subjective Pt reports feeling: No change (alert. not very cooperative. does not want better iv access. clearly does not want surgery) Objective - Vital Signs/Intake & Output Vital Signs: Vital Signs x48h Temp Pulse Resp BP Pulse Ox 11/01/19 08:01 36.6 C 95 20 167/73 H 96 11/01/19 06:00 36.8 C 77 20 158/65 H 96 Intake & Output: Intake & Output 10/29/19 10/30/19 10/31/19 11/01/19 23:59 23:59 23:59 23:59 Intake Total 350 1175 Output Total 350 50 Balance 0 1125 - Objective General Appearance: positive: No acute distress Eyes Bilateral: positive: Normal inspection, PERRL, EOMI Neck: positive: No JVD Respiratory: positive: No respiratory distress Abdomen: positive: Non-tender, No distention Neurologic/Psychiatric: positive: Oriented x3 - Lab Results Fish Bones: 11/01/19 08:35 11/01/19 06:01 Other Labs: Lab Results x24hrs 11/01/19 11/01/19 11/01/19 Range/Units 08:35 06:01 06:01 WBC 9.3 (4.8-10.8) x10^3/uL RBC 3.28 L (4.70-6.10) 10^6/uL Hgb 9.4 L 9.6 L (14.0-18.0) g/dL Hct 28.7 L 28.7 L (42.0-52.0) % MCV 87.5 (80.0-94.0) fL MCH 29.3 (27.0-31.0) pg MCHC 33.4 (32.0-36.0) g/dL RDW 14.0 (12.0-15.0) % Plt Count 138 (130-450) 10^3/uL MPV 10.3 (7.4-11.4) fL Neut # (Auto) 6.8 H (1.5-6.6) 10^3/uL Lymph # (Auto) 1.9 (1.5-3.5) 10^3/uL Shannon # (Auto) 0.5 (0.0-1.0) 10^3/uL Eos # (Auto) 0.1 (0.0-0.7) 10^3/uL Baso # (Auto) 0.0 (0.0-0.1) 10^3/uL Absolute Nucleated RBC 0.00 x10^3/uL Nucleated RBC % 0.0 /100WBC PT (9.9-12.6) secs INR (0.8-1.2) Sodium (135-145) mmol/L Potassium (3.5-5.0) mmol/L Chloride (101-111) mmol/L Carbon Dioxide (21-32) mmol/L Anion Gap (6-13) BUN (6-20) mg/dL Creatinine (0.6-1.2) mg/dL Estimated GFR (MDRD) (>89) Glucose (70-100) mg/dL Calcium (8.5-10.3) mg/dL Phosphorus (2.5-4.6) mg/dL Magnesium (1.7-2.8) mg/dL Iron (45-182) ug/dL TIBC (250-450) ug/dL % Saturation (20-50) % Transferrin (180-329) mg/dL Ferritin 14.8 L (23.9-336.2) ng/mL Total Bilirubin (0.2-1.0) mg/dL AST (10-42) IU/L ALT (10-60) IU/L Alkaline Phosphatase (42-121) IU/L Troponin I High Sens (2.3-19.7) ng/L Total Protein (6.7-8.2) g/dL Albumin (3.2-5.5) g/dL Globulin (2.1-4.2) g/dL Albumin/Globulin Ratio (1.0-2.2) Lipase (22-51) U/L Blood Type Antibody Screen Crossmatch IS Only 11/01/19 10/31/19 10/31/19 Range/Units 06:01 20:22 20:22 WBC (4.8-10.8) x10^3/uL RBC (4.70-6.10) 10^6/uL Hgb 10.5 L (14.0-18.0) g/dL Hct 32.0 L (42.0-52.0) % MCV (80.0-94.0) fL MCH (27.0-31.0) pg MCHC (32.0-36.0) g/dL RDW (12.0-15.0) % Plt Count (130-450) 10^3/uL MPV (7.4-11.4) fL Neut # (Auto) (1.5-6.6) 10^3/uL Lymph # (Auto) (1.5-3.5) 10^3/uL Shannon # (Auto) (0.0-1.0) 10^3/uL Eos # (Auto) (0.0-0.7) 10^3/uL Baso # (Auto) (0.0-0.1) 10^3/uL Absolute Nucleated RBC x10^3/uL Nucleated RBC % /100WBC PT (9.9-12.6) secs INR (0.8-1.2) Sodium 140 (135-145) mmol/L Potassium 3.4 L (3.5-5.0) mmol/L Chloride 108 (101-111) mmol/L Carbon Dioxide 24 (21-32) mmol/L Anion Gap 8.0 (6-13) BUN 25 H (6-20) mg/dL Creatinine 0.9 (0.6-1.2) mg/dL Estimated GFR (MDRD) 80 L (>89) Glucose 92 (70-100) mg/dL Calcium 8.4 L (8.5-10.3) mg/dL Phosphorus 3.1 (2.5-4.6) mg/dL Magnesium 1.8 (1.7-2.8) mg/dL Iron 86 (45-182) ug/dL TIBC 280 (250-450) ug/dL % Saturation 31 (20-50) % Transferrin 200 (180-329) mg/dL Ferritin (23.9-336.2) ng/mL Total Bilirubin (0.2-1.0) mg/dL AST (10-42) IU/L ALT (10-60) IU/L Alkaline Phosphatase (42-121) IU/L Troponin I High Sens 7.9 (2.3-19.7) ng/L Total Protein (6.7-8.2) g/dL Albumin (3.2-5.5) g/dL Globulin (2.1-4.2) g/dL Albumin/Globulin Ratio (1.0-2.2) Lipase (22-51) U/L Blood Type Antibody Screen Crossmatch IS Only 10/31/19 10/31/19 10/31/19 Range/Units 18:05 16:10 16:10 WBC (4.8-10.8) x10^3/uL RBC (4.70-6.10) 10^6/uL Hgb 11.1 L (14.0-18.0) g/dL Hct 34.4 L (42.0-52.0) % MCV (80.0-94.0) fL MCH (27.0-31.0) pg MCHC (32.0-36.0) g/dL RDW (12.0-15.0) % Plt Count (130-450) 10^3/uL MPV (7.4-11.4) fL Neut # (Auto) (1.5-6.6) 10^3/uL Lymph # (Auto) (1.5-3.5) 10^3/uL Shannon # (Auto) (0.0-1.0) 10^3/uL Eos # (Auto) (0.0-0.7) 10^3/uL Baso # (Auto) (0.0-0.1) 10^3/uL Absolute Nucleated RBC x10^3/uL Nucleated RBC % /100WBC PT 13.8 H (9.9-12.6) secs INR 1.2 (0.8-1.2) Sodium (135-145) mmol/L Potassium (3.5-5.0) mmol/L Chloride (101-111) mmol/L Carbon Dioxide (21-32) mmol/L Anion Gap (6-13) BUN (6-20) mg/dL Creatinine (0.6-1.2) mg/dL Estimated GFR (MDRD) (>89) Glucose (70-100) mg/dL Calcium (8.5-10.3) mg/dL Phosphorus (2.5-4.6) mg/dL Magnesium (1.7-2.8) mg/dL Iron (45-182) ug/dL TIBC (250-450) ug/dL % Saturation (20-50) % Transferrin (180-329) mg/dL Ferritin (23.9-336.2) ng/mL Total Bilirubin (0.2-1.0) mg/dL AST (10-42) IU/L ALT (10-60) IU/L Alkaline Phosphatase (42-121) IU/L Troponin I High Sens 6.3 (2.3-19.7) ng/L Total Protein (6.7-8.2) g/dL Albumin (3.2-5.5) g/dL Globulin (2.1-4.2) g/dL Albumin/Globulin Ratio (1.0-2.2) Lipase (22-51) U/L Blood Type Antibody Screen Crossmatch IS Only 10/31/19 10/31/19 10/31/19 Range/Units 11:32 11:32 11:32 WBC 9.4 (4.8-10.8) x10^3/uL RBC 4.15 L (4.70-6.10) 10^6/uL Hgb 11.7 L (14.0-18.0) g/dL Hct 36.1 L (42.0-52.0) % MCV 87.0 (80.0-94.0) fL MCH 28.2 (27.0-31.0) pg MCHC 32.4 (32.0-36.0) g/dL RDW 13.9 (12.0-15.0) % Plt Count 172 (130-450) 10^3/uL MPV 11.5 H (7.4-11.4) fL Neut # (Auto) 7.4 H (1.5-6.6) 10^3/uL Lymph # (Auto) 1.4 L (1.5-3.5) 10^3/uL Shannon # (Auto) 0.5 (0.0-1.0) 10^3/uL Eos # (Auto) 0.0 (0.0-0.7) 10^3/uL Baso # (Auto) 0.0 (0.0-0.1) 10^3/uL Absolute Nucleated RBC 0.00 x10^3/uL Nucleated RBC % 0.0 /100WBC PT (9.9-12.6) secs INR (0.8-1.2) Sodium 141 (135-145) mmol/L Potassium 3.7 (3.5-5.0) mmol/L Chloride 109 (101-111) mmol/L Carbon Dioxide 25 (21-32) mmol/L Anion Gap 7.0 (6-13) BUN 29 H (6-20) mg/dL Creatinine 0.9 (0.6-1.2) mg/dL Estimated GFR (MDRD) 80 L (>89) Glucose 111 H (70-100) mg/dL Calcium 8.7 (8.5-10.3) mg/dL Phosphorus (2.5-4.6) mg/dL Magnesium (1.7-2.8) mg/dL Iron (45-182) ug/dL TIBC (250-450) ug/dL % Saturation (20-50) % Transferrin (180-329) mg/dL Ferritin (23.9-336.2) ng/mL Total Bilirubin 0.7 (0.2-1.0) mg/dL AST 17 (10-42) IU/L ALT 17 (10-60) IU/L Alkaline Phosphatase 61 (42-121) IU/L Troponin I High Sens (2.3-19.7) ng/L Total Protein 7.0 (6.7-8.2) g/dL Albumin 3.7 (3.2-5.5) g/dL Globulin 3.3 (2.1-4.2) g/dL Albumin/Globulin Ratio 1.1 (1.0-2.2) Lipase 31 (22-51) U/L Blood Type O POSITIVE Antibody Screen NEGATIVE Crossmatch IS Only See Detail Assessment/Plan - Problem List (1) Lower GI bleed Impression: Recurrent lower gi bleed. He has been stable with slow drift in his hct. He is very clear he does not want a colectomy. The site of bleeding has never been identified in the past which is not unusual. Per uptodate if he were to become unstable safest option is subtotal colectomy with ileostomy. He clearly does not want a bag. Partial colectomy might not be curative putting him at risk of additional surgery and higher mortality Given her prefers medical management, has reported history of need for prolonged hospitalization and many units of blood, I believe it would be reasonable if he continues to slowly bleed to transfer him to a hospital with a larger blood bank capacity
--- NOTE | 2019-11-01 11:21 | PROVIDER PROGRESS NOTE ---
Subjective - Prog Note Date Prog Note Date: 11/01/19 - Subjective Subjective: He had another syncopal episode yesterday evening when he was having a bowel movement. Continues to have bloody stool. He denies any chest pain, dyspnea, abdominal pain. He does feel dizzy and lightheaded at times when he is standing up. Current Medications - Current Medications Current Medications: Active Medications Acetaminophen (Tylenol) 650 mg PO Q4HR PRN PRN Reason: Pain or Fever > 38C (100.4F) Atorvastatin Calcium (Lipitor) 80 mg PO DAILY [facility] Last Admin: 11/01/19 08:39 Dose: 80 mg Lactated Ringer's (Lr) 1,000 mls @ 100 mls/hr IV .Q10H [facility] Last Infusion: 11/01/19 05:07 Dose: 100 mls/hr Ioversol (Optiray 320) 100 ml IVP ONCE ONE Stop: 11/01/19 11:09 Last Admin: 11/01/19 11:08 Dose: 100 ml Multivitamins (Theragran) 1 tab PO DAILYWM [facility] Last Admin: 11/01/19 08:40 Dose: 1 tab Ondansetron HCl (Zofran Inj) 4 mg IVP Q6HR PRN PRN Reason: Nausea / Vomiting Pantoprazole Sodium (Protonix) 40 mg IVP BID [facility] Last Admin: 11/01/19 08:41 Dose: 40 mg Sodium Chloride (Normal Saline Flush 0.9%) 10 ml IVP PRN PRN PRN Reason: NEEDED PER PROVIDER ORDERS Last Admin: 10/31/19 21:10 Dose: 10 ml Sodium Chloride (Normal Saline Flush 0.9%) 10 ml IVP 0100,0900,1700 [facility] Last Admin: 11/01/19 08:41 Dose: 10 ml Omeprazole 20 mg PO DAILY 09/30/17 Atorvastatin Calcium 80 mg PO DAILY 10/01/17 Benazepril HCl 40 mg PO DAILY 10/01/17 Metoprolol Tartrate 100 mg PO DAILY 10/01/17 Multivitamin [Multiple Vitamins] 1 each PO DAILY 10/31/19 Objective - Vital Signs/Intake & Output Reviewed Vital Signs: Yes Vital Signs: Vital Signs x48h Temp Pulse Resp BP Pulse Ox 11/01/19 08:01 36.6 C 95 20 167/73 H 96 11/01/19 06:00 36.8 C 77 20 158/65 H 96 Intake & Output: Intake & Output 10/29/19 10/30/19 10/31/19 11/01/19 23:59 23:59 23:59 23:59 Intake Total 350 1175 Output Total 350 50 Balance 0 1125 - Objective General Appearance: positive: No acute distress, Alert Eyes Bilateral: positive: Normal inspection, Conjunctivae nml ENT: positive: ENT inspection nml Neck: positive: Nml inspection Respiratory: positive: No respiratory distress. negative: Wheezes, Rales, Rhonchi Cardiovascular: positive: Regular rate & rhythm, No murmur. negative: Tachycar vivek, Bradycardia Abdomen: positive: Non-tender, No distention. negative: Tenderness, Guarding, Rebound Skin: positive: No rash, Warm, Dry. negative: Pallor Extremities: positive: Full ROM, No pedal edema Neurologic/Psychiatric: positive: Oriented x3, Motor nml. negative: Disoriented to person, Disoriented to place, Disoriented to time - Lab Results Fish Bones: 11/01/19 08:35 11/01/19 06:01 Other Labs: Lab Results x24hrs 11/01/19 11/01/19 11/01/19 Range/Units 08:35 06:01 06:01 WBC 9.3 (4.8-10.8) x10^3/uL RBC 3.28 L (4.70-6.10) 10^6/uL Hgb 9.4 L 9.6 L (14.0-18.0) g/dL Hct 28.7 L 28.7 L (42.0-52.0) % MCV 87.5 (80.0-94.0) fL MCH 29.3 (27.0-31.0) pg MCHC 33.4 (32.0-36.0) g/dL RDW 14.0 (12.0-15.0) % Plt Count 138 (130-450) 10^3/uL MPV 10.3 (7.4-11.4) fL Neut # (Auto) 6.8 H (1.5-6.6) 10^3/uL Lymph # (Auto) 1.9 (1.5-3.5) 10^3/uL Dougherty # (Auto) 0.5 (0.0-1.0) 10^3/uL Eos # (Auto) 0.1 (0.0-0.7) 10^3/uL Baso # (Auto) 0.0 (0.0-0.1) 10^3/uL Absolute Nucleated RBC 0.00 x10^3/uL Nucleated RBC % 0.0 /100WBC PT (9.9-12.6) secs INR (0.8-1.2) Sodium (135-145) mmol/L Potassium (3.5-5.0) mmol/L Chloride (101-111) mmol/L Carbon Dioxide (21-32) mmol/L Anion Gap (6-13) BUN (6-20) mg/dL Creatinine (0.6-1.2) mg/dL Estimated GFR (MDRD) (>89) Glucose (70-100) mg/dL Calcium (8.5-10.3) mg/dL Phosphorus (2.5-4.6) mg/dL Magnesium (1.7-2.8) mg/dL Iron (45-182) ug/dL TIBC (250-450) ug/dL % Saturation (20-50) % Transferrin (180-329) mg/dL Ferritin 14.8 L (23.9-336.2) ng/mL Total Bilirubin (0.2-1.0) mg/dL AST (10-42) IU/L ALT (10-60) IU/L Alkaline Phosphatase (42-121) IU/L Troponin I High Sens (2.3-19.7) ng/L Total Protein (6.7-8.2) g/dL Albumin (3.2-5.5) g/dL Globulin (2.1-4.2) g/dL Albumin/Globulin Ratio (1.0-2.2) Lipase (22-51) U/L Blood Type Antibody Screen Crossmatch IS Only 11/01/19 10/31/19 10/31/19 Range/Units 06:01 20:22 20:22 WBC (4.8-10.8) x10^3/uL RBC (4.70-6.10) 10^6/uL Hgb 10.5 L (14.0-18.0) g/dL Hct 32.0 L (42.0-52.0) % MCV (80.0-94.0) fL MCH (27.0-31.0) pg MCHC (32.0-36.0) g/dL RDW (12.0-15.0) % Plt Count (130-450) 10^3/uL MPV (7.4-11.4) fL Neut # (Auto) (1.5-6.6) 10^3/uL Lymph # (Auto) (1.5-3.5) 10^3/uL Dougherty # (Auto) (0.0-1.0) 10^3/uL Eos # (Auto) (0.0-0.7) 10^3/uL Baso # (Auto) (0.0-0.1) 10^3/uL Absolute Nucleated RBC x10^3/uL Nucleated RBC % /100WBC PT (9.9-12.6) secs INR (0.8-1.2) Sodium 140 (135-145) mmol/L Potassium 3.4 L (3.5-5.0) mmol/L Chloride 108 (101-111) mmol/L Carbon Dioxide 24 (21-32) mmol/L Anion Gap 8.0 (6-13) BUN 25 H (6-20) mg/dL Creatinine 0.9 (0.6-1.2) mg/dL Estimated GFR (MDRD) 80 L (>89) Glucose 92 (70-100) mg/dL Calcium 8.4 L (8.5-10.3) mg/dL Phosphorus 3.1 (2.5-4.6) mg/dL Magnesium 1.8 (1.7-2.8) mg/dL Iron 86 (45-182) ug/dL TIBC 280 (250-450) ug/dL % Saturation 31 (20-50) % Transferrin 200 (180-329) mg/dL Ferritin (23.9-336.2) ng/mL Total Bilirubin (0.2-1.0) mg/dL AST (10-42) IU/L ALT (10-60) IU/L Alkaline Phosphatase (42-121) IU/L Troponin I High Sens 7.9 (2.3-19.7) ng/L Total Protein (6.7-8.2) g/dL Albumin (3.2-5.5) g/dL Globulin (2.1-4.2) g/dL Albumin/Globulin Ratio (1.0-2.2) Lipase (22-51) U/L Blood Type Antibody Screen Crossmatch IS Only 10/31/19 10/31/19 10/31/19 Range/Units 18:05 16:10 16:10 WBC (4.8-10.8) x10^3/uL RBC (4.70-6.10) 10^6/uL Hgb 11.1 L (14.0-18.0) g/dL Hct 34.4 L (42.0-52.0) % MCV (80.0-94.0) fL MCH (27.0-31.0) pg MCHC (32.0-36.0) g/dL RDW (12.0-15.0) % Plt Count (130-450) 10^3/uL MPV (7.4-11.4) fL Neut # (Auto) (1.5-6.6) 10^3/uL Lymph # (Auto) (1.5-3.5) 10^3/uL Dougherty # (Auto) (0.0-1.0) 10^3/uL Eos # (Auto) (0.0-0.7) 10^3/uL Baso # (Auto) (0.0-0.1) 10^3/uL Absolute Nucleated RBC x10^3/uL Nucleated RBC % /100WBC PT 13.8 H (9.9-12.6) secs INR 1.2 (0.8-1.2) Sodium (135-145) mmol/L Potassium (3.5-5.0) mmol/L Chloride (101-111) mmol/L Carbon Dioxide (21-32) mmol/L Anion Gap (6-13) BUN (6-20) mg/dL Creatinine (0.6-1.2) mg/dL Estimated GFR (MDRD) (>89) Glucose (70-100) mg/dL Calcium (8.5-10.3) mg/dL Phosphorus (2.5-4.6) mg/dL Magnesium (1.7-2.8) mg/dL Iron (45-182) ug/dL TIBC (250-450) ug/dL % Saturation (20-50) % Transferrin (180-329) mg/dL Ferritin (23.9-336.2) ng/mL Total Bilirubin (0.2-1.0) mg/dL AST (10-42) IU/L ALT (10-60) IU/L Alkaline Phosphatase (42-121) IU/L Troponin I High Sens 6.3 (2.3-19.7) ng/L Total Protein (6.7-8.2) g/dL Albumin (3.2-5.5) g/dL Globulin (2.1-4.2) g/dL Albumin/Globulin Ratio (1.0-2.2) Lipase (22-51) U/L Blood Type Antibody Screen Crossmatch IS Only 10/31/19 10/31/19 10/31/19 Range/Units 11:32 11:32 11:32 WBC 9.4 (4.8-10.8) x10^3/uL RBC 4.15 L (4.70-6.10) 10^6/uL Hgb 11.7 L (14.0-18.0) g/dL Hct 36.1 L (42.0-52.0) % MCV 87.0 (80.0-94.0) fL MCH 28.2 (27.0-31.0) pg MCHC 32.4 (32.0-36.0) g/dL RDW 13.9 (12.0-15.0) % Plt Count 172 (130-450) 10^3/uL MPV 11.5 H (7.4-11.4) fL Neut # (Auto) 7.4 H (1.5-6.6) 10^3/uL Lymph # (Auto) 1.4 L (1.5-3.5) 10^3/uL Dougherty # (Auto) 0.5 (0.0-1.0) 10^3/uL Eos # (Auto) 0.0 (0.0-0.7) 10^3/uL Baso # (Auto) 0.0 (0.0-0.1) 10^3/uL Absolute Nucleated RBC 0.00 x10^3/uL Nucleated RBC % 0.0 /100WBC PT (9.9-12.6) secs INR (0.8-1.2) Sodium 141 (135-145) mmol/L Potassium 3.7 (3.5-5.0) mmol/L Chloride 109 (101-111) mmol/L Carbon Dioxide 25 (21-32) mmol/L Anion Gap 7.0 (6-13) BUN 29 H (6-20) mg/dL Creatinine 0.9 (0.6-1.2) mg/dL Estimated GFR (MDRD) 80 L (>89) Glucose 111 H (70-100) mg/dL Calcium 8.7 (8.5-10.3) mg/dL Phosphorus (2.5-4.6) mg/dL Magnesium (1.7-2.8) mg/dL Iron (45-182) ug/dL TIBC (250-450) ug/dL % Saturation (20-50) % Transferrin (180-329) mg/dL Ferritin (23.9-336.2) ng/mL Total Bilirubin 0.7 (0.2-1.0) mg/dL AST 17 (10-42) IU/L ALT 17 (10-60) IU/L Alkaline Phosphatase 61 (42-121) IU/L Troponin I High Sens (2.3-19.7) ng/L Total Protein 7.0 (6.7-8.2) g/dL Albumin 3.7 (3.2-5.5) g/dL Globulin 3.3 (2.1-4.2) g/dL Albumin/Globulin Ratio 1.1 (1.0-2.2) Lipase 31 (22-51) U/L Blood Type O POSITIVE Antibody Screen NEGATIVE Crossmatch IS Only See Detail ABX Reporting Has patient been on IV antibiotics over the past 48 hours?: No Assessment/Plan - Problem List (1) Lower GI bleed Impression: Continues to have bleeding which I suspect is likely a diverticular bleed. I do not suspect is an upper GI bleed we will continue him on Protonix IV. Given his ongoing bleeding, will obtain a CT angiogram of the abdomen and pelvis to look for active extravasation. If there is any suggestion of bleeding, will transfer him to [facility] for interventional radiology and possible embolization. We will continue with clear liquid diets as tolerated. General surgeon on board appreciate their recommendations. Patient as stated again that he would not want operative management of his diverticular bleed. (2) Syncope Impression: This is likely due to his GI bleed and possibly component of vasovagal syncope given he was having a bowel movement when the second episode occurred. No deloris dence of arrhythmia on telemetry. Echocardiogram has been ordered and is pending. (3) Acute blood loss anemia Impression: His hemoglobin has decreased 11.7 to 9.4 and given his ongoing bleeding, dizziness, and syncope, we will transfuse him 1 unit of packed red blood cell. He fortunately is not hypotensive but he is slightly tachycardic although this may be due to him being off of his beta-claude. We will continue to monitor his hemoglobin every 8 hours. SCDs for DVT prophylaxis. (4) History of coronary artery disease Impression: His EKG does not suggest ischemia and his troponin was negative. We will con tinue his Lipitor. He is not on aspirin given his history of recurrent diverticular bleed. (5) Hypertension Impression: He is hypertensive with systolic in the 150s. We will continue to hold his home and hypertensives given his ongoing bleeding and syncope. He is likely orthostatic positive. We will resume his home antihypertensives when clinically appropriate. Qualifiers: Hypertension type: essential hypertension Qualified Code(s): I10 - Essential (primary) hypertension
--- NOTE | 2019-11-01 11:32 | CT Report ---
Reason: BRBPR, DIVERTICULOSIS, CONCERN FOR ACTIVE BLEEDING Procedure Date: 11/01/2019 Accession Number: [id number] / [id number] Procedure: CT - ANGIO ABDOMEN/PELVIS W CPT Code: Final Report FULL RESULT: EXAM: CT ANGIOGRAM ABDOMEN AND PELVIS WITH CONTRAST EXAM DATE: 11/01/2019 10:25 AM. CLINICAL HISTORY: BRBPR, DIVERTICULOSIS, CONCERN FOR ACTIVE BLEEDING. COMPARISONS: None. TECHNIQUE: Routine helical CT angiogram imaging was performed through the abdomen and pelvis in the arterial phase. IV contrast: OPTIRAY 320. Enteric contrast: No. Reconstructions: Coronal, sagittal, and 3D MIP reconstructions. In accordance with CT protocol optimization, one or more of the following dose reduction techniques were utilized for this exam: automated exposure control, adjustment of mA and/or KV based on patient size, or use of iterative reconstructive technique. FINDINGS: Vasculature: Atherosclerotic changes abdominal aorta. Ectatic largest measurement 2.6 x 2.5 cm. No aneurysm. Calcified plaque at the origin of the celiac, SMA, bilateral single renal arteries. SAVANNA patent. There is a large amount of contrast in the posterior body of the stomach within vessels and intraluminal contrast., this decreases slightly on the delayed images. There is a small amount of contrast seen in the descending colon sigmoid junction (17, 119) which is not apparent on delayed imaging. Lung Bases: Bibasilar scarring, peripheral honeycombing. Calcified granulomas Small hiatal hernia Abdominal Solid Organs: Liver: Liver cysts largest 3 cm. Indeterminate 1.5 cm density segment 5. Septated cyst segment 6. Adrenals: Unremarkable Kidneys: Bilateral cysts largest right cyst 6.7 cm with thin septation. Largest left renal cyst 3 cm. Spleen: Cysts. Pancreas unremarkable. Peritoneal Cavity: Diverticulosis No free fluid, free air, Normal appendix. 3.7 cm Fat-containing umbilical hernia. Duodenal diverticulum Pelvic Organs: Prostate markedly enlarged AP 8.2 x 7.5 cm. Fat-containing right inguinal hernia . Distended bladder Bones: DJD spine, hips, SI joints. Hemangioma L4 Other: None. IMPRESSION: 1. Large amount of intravenous contrast in the posterior body of the stomach which decreases slightly delayed images. 2. There is a small amount of intravenous contrast on arterial phase in the junction of the descending, sigmoid colon not present as focal collection on delayed images. (17, 119) 3. Indeterminate 1.5 cm liver density segment 5. Further evaluation can be with CT liver protocol when patient stable. 4. Ectatic abdominal aorta. No new aneurysm. No dissection. 5. Bilateral renal cysts Bosniak 1 or 2, benign cysts. No further workup needed. 6. Markedly enlarged prostate. 7. Distended bladder. 8. Diverticulosis 9. Duodenal diverticulum RADIA The call report notification system was initiated by Dr. Lucy Abarca at 11:24 AM on 11/01/2019. The above call report findings were discussed with Indra Aguayo by Dr. Lucy Abarca at 11:30 AM on 11/01/2019.
--- NOTE | 2019-11-01 12:07 | PHARMACY PROGRESS NOTE ---
- Best Possible Medication History Admit Date and Time: 10/31/19 1554 Processed by: Pharmacy Medication History completed: Yes Secondary Source(s): Physician records As the person ultimately responsible for medication therapy, providers are able to order a medication from an existing home medication list in [facility] via the "Reconcile Routine" prior to Confirmation of that medication by logistics support. Such practice is discouraged except when the physician, in their clinical judgment, deems that a medical need exists for a medication without regard to previous use.
[2019-11-01] MEDS: SODIUM CHLORIDE FLUSH 0.9% 10 ML SYRINGE IVP PRN (20:23)
[2019-11-02] MEDS: LACTATED RINGERS 1,000 ML IV SCH (03:07)
[2019-11-02] MEDS: SODIUM CHLORIDE FLUSH 0.9% 10 ML SYRINGE IVP SCH ×3 (03:09→17:58)
[2019-11-02 06:27] LABS: BASOPHILS % (AUTO) 0.2 %; EOSINOPHILS # (AUTO) 0.2 10^3/uL (0.0-0.7); EOSINOPHILS % (AUTO) 1.6 %; HGB - HEMOGLOBIN 8.7 g/dL (14.0-18.0); LYMPHOCYTES # (AUTO) 2.1 10^3/uL (1.5-3.5); LYMPHOCYTES % (AUTO) 22.8 %; MEAN CORPUSCULAR HEMOGLOBIN 29.7 pg (27.0-31.0); MEAN CORPUSCULAR VOLUME 87.4 fL (80.0-94.0); MONOCYTES # (AUTO) 0.6 10^3/uL (0.0-1.0); MONOCYTES % (AUTO) 6.8 %; NEUTROPHILS # (AUTO) 6.4 10^3/uL (1.5-6.6); NEUTROPHILS % (AUTO) 68.1 %; PLT - PLATELET COUNT 131 10^3/uL (130-450); RED BLOOD COUNT 2.93 10^6/uL (4.70-6.10); RED CELL DISTRIBUTION WIDTH 14.1 % (12.0-15.0); WHITE BLOOD COUNT 9.3 x10^3/uL (4.8-10.8)
[2019-11-02 06:38] LABS: CREATININE 0.8 mg/dL (0.6-1.2); MAGNESIUM 1.8 mg/dL (1.7-2.8); PHOSPHORUS 2.4 mg/dL (2.5-4.6)
[2019-11-02] MEDS ORDERED: POTASSIUM CHLORIDE 20 MEQ TABLET PO ONE (08:12)
[2019-11-02] MEDS: ATORVASTATIN 40 MG TABLET PO SCH (08:25)
[2019-11-02] MEDS: PANTOPRAZOLE 40 MG VIAL IVP SCH ×2 (08:25→21:54)
[2019-11-02] MEDS: MULTIVITAMIN TABLET PO SCH (08:25)
[2019-11-02 10:46] LABS: HGB - HEMOGLOBIN 7.5 g/dL (14.0-18.0)
--- NOTE | 2019-11-02 14:02 | PROVIDER PROGRESS NOTE ---
Subjective - Prog Note Date Prog Note Date: 11/02/19 - Subjective Pt reports feeling: No change Objective - Vital Signs/Intake & Output Vital Signs: Vital Signs x48h Temp Pulse Pulse Resp BP BP Pulse Ox 11/02/19 12:10 36.7 C 89 16 128/64 11/02/19 12:00 37 C 97 16 121/66 11/02/19 11:48 37 C 83 16 127/66 11/02/19 07:51 37.0 C 89 16 150/70 H 96 Intake & Output: Intake & Output 10/30/19 10/31/19 11/01/19 11/02/19 23:59 23:59 23:59 23:59 Intake Total 350 2690 1883.333 Output Total 350 365 250 Balance 0 2325 1633.333 - Objective Eyes Bilateral: positive: Normal inspection, PERRL, EOMI ENT: positive: No signs of dehydration Neck: positive: No JVD Respiratory: positive: No respiratory distress Abdomen: positive: No distention - Lab Results Fish Bones: 11/02/19 10:34 11/02/19 06:04 Other Labs: Lab Results x24hrs 11/02/19 11/02/19 11/02/19 Range/Units 10:34 06:04 06:04 WBC 9.3 (4.8-10.8) x10^3/uL RBC 2.93 L (4.70-6.10) 10^6/uL Hgb 7.5 L 8.7 L (14.0-18.0) g/dL Hct 23.0 L 25.6 L (42.0-52.0) % MCV 87.4 (80.0-94.0) fL MCH 29.7 (27.0-31.0) pg MCHC 34.0 (32.0-36.0) g/dL RDW 14.1 (12.0-15.0) % Plt Count 131 (130-450) 10^3/uL MPV 11.0 (7.4-11.4) fL Neut # (Auto) 6.4 (1.5-6.6) 10^3/uL Lymph # (Auto) 2.1 (1.5-3.5) 10^3/uL [place] # (Auto) 0.6 (0.0-1.0) 10^3/uL Eos # (Auto) 0.2 (0.0-0.7) 10^3/uL Baso # (Auto) 0.0 (0.0-0.1) 10^3/uL Absolute Nucleated RBC 0.00 x10^3/uL Nucleated RBC % 0.0 /100WBC Sodium 141 (135-145) mmol/L Potassium 3.2 L (3.5-5.0) mmol/L Chloride 109 (101-111) mmol/L Carbon Dioxide 23 (21-32) mmol/L Anion Gap 9.0 (6-13) BUN 20 (6-20) mg/dL Creatinine 0.8 (0.6-1.2) mg/dL Estimated GFR (MDRD) 92 (>89) Glucose 101 H (70-100) mg/dL Calcium 8.0 L (8.5-10.3) mg/dL Phosphorus 2.4 L (2.5-4.6) mg/dL Magnesium 1.8 (1.7-2.8) mg/dL Blood Type Antibody Screen Crossmatch IS Only 10/31/19 Range/Units 23:00 WBC (4.8-10.8) x10^3/uL RBC (4.70-6.10) 10^6/uL Hgb (14.0-18.0) g/dL Hct (42.0-52.0) % MCV (80.0-94.0) fL MCH (27.0-31.0) pg MCHC (32.0-36.0) g/dL RDW (12.0-15.0) % Plt Count (130-450) 10^3/uL MPV (7.4-11.4) fL Neut # (Auto) (1.5-6.6) 10^3/uL Lymph # (Auto) (1.5-3.5) 10^3/uL [place] # (Auto) (0.0-1.0) 10^3/uL Eos # (Auto) (0.0-0.7) 10^3/uL Baso # (Auto) (0.0-0.1) 10^3/uL Absolute Nucleated RBC x10^3/uL Nucleated RBC % /100WBC Sodium (135-145) mmol/L Potassium (3.5-5.0) mmol/L Chloride (101-111) mmol/L Carbon Dioxide (21-32) mmol/L Anion Gap (6-13) BUN (6-20) mg/dL Creatinine (0.6-1.2) mg/dL Estimated GFR (MDRD) (>89) Glucose (70-100) mg/dL Calcium (8.5-10.3) mg/dL Phosphorus (2.5-4.6) mg/dL Magnesium (1.7-2.8) mg/dL Blood Type O POSITIVE Antibody Screen NEGATIVE Crossmatch IS Only See Detail Assessment/Plan - Problem List (1) Lower GI bleed Impression: continued slow lower gi bleed. yesterdays ct scan was reviewed by interventional radiology and upper gi bleed thought not present. possible bleeding descending colon Transfer to a center which can possibly embolize a bleeding site has been discus sed. Mr Suero does not want surgery Given has past history of ongoing bleed and the limited capacity of our blood bank and his refusal to have surgery I believe he should be transferred to a hospital with a larger blood bank and interventional radiology capability
[2019-11-02] MEDS ORDERED: NEUTRA-PHOS 250 MG TABLET PO SCH (17:00)
--- NOTE | 2019-11-02 17:31 | PROVIDER PROGRESS NOTE ---
Subjective - Prog Note Date Prog Note Date: 11/02/19 - Subjective Pt reports feeling: No change Subjective: discussed with pt about the care plan. pt still refused to have any interventions procedure. pt still have three bloody bowel movements, and HGB is drop to 7.5. pt agree to have blood transfusion. I discussed with pt's daughter Amina at [phone]. she hope pt has tagged RBC study to try to find out bleed site. today we did not have enough nuclear material to do tagged RBC study, will continue on tomorrow study. Amina will talk with her father to see if her father changed his mind to have procedure done after tagged RBC study,hopefully can be transfer to [facility] for embolization when bleeding study is done. Intervention radiologist need backup surgery consent from pt. Current Medications - Current Medications Current Medications: Active Medications Acetaminophen (Tylenol) 650 mg PO Q4HR PRN PRN Reason: Pain or Fever > 38C (100.4F) Atorvastatin Calcium (Lipitor) 80 mg PO DAILY ON LICENSE OF [facility] Last Admin: 11/02/19 08:25 Dose: 80 mg Lactated Ringer's (Lr) 1,000 mls @ 100 mls/hr IV .Q10H ON LICENSE OF [facility] Last Infusion: 11/02/19 11:57 Dose: 0 mls/hr Multivitamins (Theragran) 1 tab PO DAILYWM ON LICENSE OF [facility] Last Admin: 11/02/19 08:25 Dose: 1 tab Ondansetron HCl (Zofran Inj) 4 mg IVP Q6HR PRN PRN Reason: Nausea / Vomiting Pantoprazole Sodium (Protonix) 40 mg IVP BID ON LICENSE OF [facility] Last Admin: 11/02/19 08:25 Dose: 40 mg Sodium Chloride (Normal Saline Flush 0.9%) 10 ml IVP PRN PRN PRN Reason: NEEDED PER PROVIDER ORDERS Last Admin: 11/01/19 20:23 Dose: 10 ml Sodium Chloride (Normal Saline Flush 0.9%) 10 ml IVP 0100,0900,1700 ON LICENSE OF [facility] Last Admin: 11/02/19 08:25 Dose: 10 ml Sodium Phosphate (K-Phos Neutral) 250 mg PO TIDWM ON LICENSE OF [facility] Last Admin: 11/02/19 16:11 Dose: 250 mg Tamsulosin HCl (Flomax) 0.4 mg PO DAILY ON LICENSE OF [facility] Omeprazole 20 mg PO DAILY 09/30/17 Atorvastatin Calcium 80 mg PO DAILY 10/01/17 Benazepril HCl 40 mg PO DAILY 10/01/17 Metoprolol Tartrate 100 mg PO DAILY 10/01/17 Multivitamin [Multiple Vitamins] 1 each PO DAILY 10/31/19 Objective - Vital Signs/Intake & Output Vital Signs: Vital Signs x48h Temp Pulse Pulse Resp BP BP 11/02/19 16:07 37.0 C 90 20 136/69 H 11/02/19 15:10 37 C 83 16 133/52 H 11/02/19 14:55 37.1 C 84 16 139/71 H 11/02/19 14:35 37 C 83 16 144/71 H 11/02/19 12:10 36.7 C 89 16 128/64 11/02/19 12:00 37 C 97 16 121/66 11/02/19 11:48 37 C 83 16 127/66 Intake & Output: Intake & Output 10/30/19 10/31/19 11/01/19 11/02/19 23:59 23:59 23:59 23:59 Intake Total 350 2690 2443.333 Output Total 350 365 600 Balance 0 2325 1843.333 - Objective General Appearance: positive: No acute distress, Alert. negative: Lethargic Eyes Bilateral: positive: Normal inspection, PERRL, No lid inflammation ENT: positive: ENT inspection nml, Pharynx nml, No signs of dehydration. negative: Purulent nasal drainage Neck: positive: Nml inspection, Thyroid nml, No JVD, Trachea midline. negative: Thyromegaly, Stiff neck, Tracheal deviation Respiratory: positive: Chest non-tender, No respiratory distress, Breath sounds nml. negative: Wheezes, Rales, Rhonchi Cardiovascular: positive: Regular rate & rhythm, No murmur, No gallop. negative: Extrasystoles, Tachycardia, Bradycardia, Systolic murmur, Diastolic murmur Abdomen: positive: Non-tender, No organomegaly, Nml bowel sounds, No distention. negative: Tenderness, Guarding, Rebound Back: positive: Nml inspection. negative: CVA tenderness (R), CVA tenderness (L) Skin: positive: Color nml, No rash, Warm, Dry. negative: Cyanosis, Diaphoresis, Pallor Extremities: positive: Non-tender, Nml appearance. negative: Calf tenderness, Julianna's sign/cords Neurologic/Psychiatric: positive: Oriented x3, Sensation nml. negative: Weakness, Sensory loss, Facial droop, Slurred/abnml speech - Lab Results Fish Bones: 11/02/19 10:34 11/02/19 06:04 Other Labs: Lab Results x24hrs 11/02/19 11/02/19 11/02/19 Range/Units 10:34 06:04 06:04 WBC 9.3 (4.8-10.8) x10^3/uL RBC 2.93 L (4.70-6.10) 10^6/uL Hgb 7.5 L 8.7 L (14.0-18.0) g/dL Hct 23.0 L 25.6 L (42.0-52.0) % MCV 87.4 (80.0-94.0) fL MCH 29.7 (27.0-31.0) pg MCHC 34.0 (32.0-36.0) g/dL RDW 14.1 (12.0-15.0) % Plt Count 131 (130-450) 10^3/uL MPV 11.0 (7.4-11.4) fL Neut # (Auto) 6.4 (1.5-6.6) 10^3/uL Lymph # (Auto) 2.1 (1.5-3.5) 10^3/uL [place] # (Auto) 0.6 (0.0-1.0) 10^3/uL Eos # (Auto) 0.2 (0.0-0.7) 10^3/uL Baso # (Auto) 0.0 (0.0-0.1) 10^3/uL Absolute Nucleated RBC 0.00 x10^3/uL Nucleated RBC % 0.0 /100WBC Sodium 141 (135-145) mmol/L Potassium 3.2 L (3.5-5.0) mmol/L Chloride 109 (101-111) mmol/L Carbon Dioxide 23 (21-32) mmol/L Anion Gap 9.0 (6-13) BUN 20 (6-20) mg/dL Creatinine 0.8 (0.6-1.2) mg/dL Estimated GFR (MDRD) 92 (>89) Glucose 101 H (70-100) mg/dL Calcium 8.0 L (8.5-10.3) mg/dL Phosphorus 2.4 L (2.5-4.6) mg/dL Magnesium 1.8 (1.7-2.8) mg/dL Blood Type Antibody Screen Crossmatch IS Only 10/31/19 Range/Units 23:00 WBC (4.8-10.8) x10^3/uL RBC (4.70-6.10) 10^6/uL Hgb (14.0-18.0) g/dL Hct (42.0-52.0) % MCV (80.0-94.0) fL MCH (27.0-31.0) pg MCHC (32.0-36.0) g/dL RDW (12.0-15.0) % Plt Count (130-450) 10^3/uL MPV (7.4-11.4) fL Neut # (Auto) (1.5-6.6) 10^3/uL Lymph # (Auto) (1.5-3.5) 10^3/uL [place] # (Auto) (0.0-1.0) 10^3/uL Eos # (Auto) (0.0-0.7) 10^3/uL Baso # (Auto) (0.0-0.1) 10^3/uL Absolute Nucleated RBC x10^3/uL Nucleated RBC % /100WBC Sodium (135-145) mmol/L Potassium (3.5-5.0) mmol/L Chloride (101-111) mmol/L Carbon Dioxide (21-32) mmol/L Anion Gap (6-13) BUN (6-20) mg/dL Creatinine (0.6-1.2) mg/dL Estimated GFR (MDRD) (>89) Glucose (70-100) mg/dL Calcium (8.5-10.3) mg/dL Phosphorus (2.5-4.6) mg/dL Magnesium (1.7-2.8) mg/dL Blood Type O POSITIVE Antibody Screen NEGATIVE Crossmatch IS Only See Detail ABX Reporting Has patient been on IV antibiotics over the past 48 hours?: No Sepsis Event Note (H) - Evaluation Current Stage of Sepsis: Ruled out Assessment/Plan - Problem List (1) GI bleed Impression: pt Patient still has GI bleed, patient have bowel movement with bleeding stool, patient hemoglobin dropped to 7.5, patient still refused any procedure or intervention for him, talked with patient's daughter discussed with patient and his daughter. Pln will have her get RBC cell study on tomorrow, because we do not have enough radiation material to do RBC study, so we will do it tomorrow, we will discuss it with the patient and his daughter, if patient agree to do procedure, Dr. Aguayo already discussed with [facility] radiologist, we might transfer patient to the [facility], to have embolization, but the patient need to have concent for backup surgery, then interventional radiologist in [facility] can accepted patient for transfer, so we will see the patient RBC study if we could figure out patient bleeding site, then we will talk with [facility] tomorrow, see if patient could be transferred, (2) Syncope Impression: no syncope. ECHO study is unremarkable, is likely to secondary acute GI bleeding (3) Acute blood loss anemia Impression: Patient hemoglobin is 7.5, patient has 3 bowel movement bleeding stool, patient will be have 2 units of blood transfusion, continue H&H check hemoglobin, (4) History of coronary artery disease Impression: Patient echo review unremarkable.His EKG does not suggest ischemia and his troponin was negative. We will continue his Lipitor. He is not on aspirin given his history of recurrent diverticular bleed. (5) Hypertension Impression: stable.Continue metoprolol, continue telemetry, continue vital signs monitor Qualifiers: GI bleed type/associated pathology: melena Qualified Code(s): K92.1 - Melena
[2019-11-02 19:22] LABS: HGB - HEMOGLOBIN 9.3 g/dL (14.0-18.0)
[2019-11-02] MEDS: TAMSULOSIN 0.4 MG CAPSULE PO SCH (21:53)
[2019-11-02] MEDS: SODIUM CHLORIDE FLUSH 0.9% 10 ML SYRINGE IVP PRN (21:54)
[2019-11-03] MEDS: SODIUM CHLORIDE FLUSH 0.9% 10 ML SYRINGE IVP SCH ×4 (00:07→23:40)
[2019-11-03 00:10] LABS: HGB - HEMOGLOBIN 8.7 g/dL (14.0-18.0)
[2019-11-03 06:35] LABS: BASOPHILS % (AUTO) 0.2 %; EOSINOPHILS # (AUTO) 0.3 10^3/uL (0.0-0.7); EOSINOPHILS % (AUTO) 2.4 %; HGB - HEMOGLOBIN 8.2 g/dL (14.0-18.0); LYMPHOCYTES # (AUTO) 1.7 10^3/uL (1.5-3.5); LYMPHOCYTES % (AUTO) 15.8 %; MEAN CORPUSCULAR HEMOGLOBIN 29.6 pg (27.0-31.0); MEAN CORPUSCULAR HGB CONC 33.5 g/dL (32.0-36.0); MEAN CORPUSCULAR VOLUME 88.4 fL (80.0-94.0); MEAN PLATELET VOLUME 10.3 fL (7.4-11.4); MONOCYTES # (AUTO) 0.8 10^3/uL (0.0-1.0); MONOCYTES % (AUTO) 7.2 %; NEUTROPHILS # (AUTO) 7.7 10^3/uL (1.5-6.6); NEUTROPHILS % (AUTO) 74.1 %; PLT - PLATELET COUNT 111 10^3/uL (130-450); RED BLOOD COUNT 2.77 10^6/uL (4.70-6.10); RED CELL DISTRIBUTION WIDTH 14.8 % (12.0-15.0); WHITE BLOOD COUNT 10.4 x10^3/uL (4.8-10.8)
[2019-11-03 06:48] LABS: CALCIUM 7.6 mg/dL (8.5-10.3); CREATININE 0.9 mg/dL (0.6-1.2); MAGNESIUM 1.7 mg/dL (1.7-2.8)
[2019-11-03] MEDS ORDERED: POTASSIUM CHLORIDE 20 MEQ TABLET PO ONE (08:04)
[2019-11-03] MEDS: LACTATED RINGERS 1,000 ML IV SCH ×2 (08:18→20:07)
[2019-11-03] MEDS ORDERED: lisinopriL 20 MG TABLET PO SCH (09:00)
--- NOTE | 2019-11-03 09:13 | PROVIDER PROGRESS NOTE ---
Hospitalist Cross-cover Note - Cross-Cover Note Cross-Cover Note: I came to assess pt early this morning around 9:15am, auto mechanics instructor was at the room. pt was alert and oriented. pt told to auto mechanics instructor " hospital make terrible food." Then pt told me he did not trust all physicians and me, did not trust anybody in the hospital. he also said he and his daughter did not understood what I said to him. He stated he did not have hearing aid and he could not hear anything. I and auto mechanics instructor tried closely to him to let him understood. I asked him what we could make he feel better in the hospital. He did not answer me. I let auto mechanics instructor to finish her job. Later I came to see him, I tried to explain the reason why we need to continue check his HGB. he state he does not trust and see me. our conversation stopped at there. I left pt's room. I came to office and reported this situation to , and asked Dr. Grimm if we could switch pt. Dr. Grimm kindly agreed. Then we switch, and took the pt. Thank 's support.
--- NOTE | 2019-11-03 10:34 | PROVIDER PROGRESS NOTE ---
Assessment/Plan - Problem List (1) Lower GI bleed Assessment/Plan: The pt had a large red BM today, therefore he has ongoing active bleeding. He was hemodynamically unstable when he had the syncope several days ago, with systolic BP documented at approx. 70 mmHg. There have been many discussions with him (and daughter by phone) regarding managing the source of his GI bleeding, and he has vehemently declined any GI surgery. Since Interventional Radiology requires consent for GI surgery as a back-up, no Interventional Radiology can be planned. Therefore, no new work-up for locating site of GI bleeding, with a red cell-tagged nuclear scan, will be ordered at this time. Will request consult from Palliative Care if needed, since he may not survive this episode of hemorrhage. I will admit him to Inpatient status, since he has ongoing active bleeding which is not slowing, and anticipate continued blood transfusion needs. (2) Acute blood loss anemia Assessment/Plan: As above. Will follow H/H q 8-12hours, transfuse if Hgb <7 or if symptomatic (such as recurrence of syncope or if he gets CAD symptoms, since he has co-morbidity of CAD). Avoid any anti-platelet agents or anti-coagulants. (3) Syncope Assessment/Plan: On 11/01/19, he had syncope here which was witnessed. He had been in a seated position on the commode, and had syncope, diaphoresis and the first BP documented was in the 70's systolic. He was ordered to stay in bed after that, by the Hospitalist. He is getting iv fluids and blood transfusions to manage the reason for the low BP. Will order daily orthostatic VS. Will adjust his BP meds accordingly. (4) Hypokalemia Assessment/Plan: Replaced iv and po due to severity of hypokalemia. Since he has needed replacement for the last 3 days, will start daily scheduled K replacement. Follow BMP daily. (5) Hypertension Qualifiers: Hypertension type: essential hypertension Qualified Code(s): I10 - Essential (primary) hypertension Assessment/Plan: He is on Lisinopril at maximum dose, Metoprolol and his Tamsolusin also drops his BP. Will titrate down the Lisinopril, due to documented low BP when he had syncope. Continue B-claude dose, due to Hx of CAD. Will order daily orthostatic VS checks, in case further medication adjustments are needed, trying to prevent supine HTN however. (6) History of coronary artery disease Assessment/Plan: No symptoms this admission. Troponins were evaluated earlier this admission. echo was done (after he had syncope) and showed normal LVEF. - Current Meds Current Meds: Current Medications Generic Name Dose Route Start Last Admin Trade Name Freq PRN Reason Stop Dose Admin Atorvastatin Calcium 80 mg 11/01/19 09:00 11/02/19 08:25 Lipitor PO 80 mg DAILY [facility] Administration Lactated Ringer's 1,000 mls @ 75 mls/hr 11/03/19 09:00 11/03/19 08:18 Lr IV 75 mls/hr .[id number] [facility] Administration Multivitamins 1 tab 11/01/19 08:00 11/02/19 08:25 Theragran PO 1 tab DAILYWM [facility] Administration Pantoprazole Sodium 40 mg 10/31/19 21:00 11/02/19 21:54 Protonix IVP 40 mg BID [facility] Administration Sodium Chloride 10 ml 10/31/19 15:54 11/02/19 21:54 Normal Saline Flush 0.9% IVP 10 ml PRN PRN Administration NEEDED PER PROVIDER ORDERS Sodium Chloride 10 ml 10/31/19 17:00 11/03/19 08:18 Normal Saline Flush 0.9% IVP 10 ml 0100,0900,1700 [facility] Administration Tamsulosin HCl 0.4 mg 11/02/19 21:15 11/02/19 21:53 Flomax PO Not Given DAILY [facility] - Lab Result Fish Bone Diagrams: 11/03/19 06:30 11/03/19 06:30 - Additional Planning My Orders: My Active Orders 11/03/19 09:27 Orthostatic [Vital Signs - Orthostatic] [RC] DAILY Subjective - Subjective Patient Reports: Other ([This morning, he told his provider, Mike Petty [employer]OMOTIONS EXECUTIVE PRODUCER that he didn't trust him anymore, per Mike, therefore as of today, I will be his Hospitalist provider]. When questioned why he "fired" Mike Petty, the patient answered me that he cannot undestand Mike Petty with his [place] accent and neither can his daughter.) Objective Vital Signs: Vital Signs - 24 hr 11/02/19 11/02/19 11/02/19 11:48 12:00 12:10 Temperature 37 C 37 C 36.7 C Heart Rate 83 97 89 Heart Rate [ Brachial] Respiratory 16 16 16 Rate Blood Pressure 127/66 121/66 128/64 Blood Pressure [Right Brachial artery] O2 Saturation 11/02/19 11/02/19 11/02/19 14:35 14:55 15:10 Temperature 37 C 37.1 C 37 C Heart Rate 83 84 83 Heart Rate [ Brachial] Respiratory 16 16 16 Rate Blood Pressure 144/71 H 139/71 H 133/52 H Blood Pressure [Right Brachial artery] O2 Saturation 11/02/19 11/02/19 11/02/19 16:07 17:45 20:47 Temperature 37.0 C 36.7 C 37.0 C Heart Rate 86 Heart Rate [ 90 97 Brachial] Respiratory 20 16 20 Rate Blood Pressure 139/66 H Blood Pressure 136/69 H 133/69 H [Right Brachial artery] O2 Saturation 96 96 11/03/19 11/03/19 11/03/19 00:06 05:55 07:55 Temperature 36.6 C 36.6 C 36.5 C Heart Rate Heart Rate [ 99 96 92 Brachial] Respiratory 20 16 18 Rate Blood Pressure Blood Pressure 122/65 120/63 130/58 L [Right Brachial artery] O2 Saturation 95 98 99 Oxygen O2 Source Room air I&O (Last 24 Hrs): Intake and Output Totals x24h 11/01/19 11/02/19 11/03/19 23:59 23:59 23:59 Intake Total 2690 3634.333 400 Output Total 365 700 Balance 2325 2934.333 400 General: Alert, Oriented x3 HEENT: Atraumatic, EOMI, Mucous membr. moist/pink Neck: Supple, No JVD Neuro: Alert, Non Focal Cardiovascular: Regular rate, No murmurs Respiratory: No respiratory distress, Breath sounds nml Abdomen: Normal bowel sounds, Soft, No tenderness Extremities: No edema - Results Results: Laboratory Results WBC 10.4 x10^3/uL (4.8-10.8) 11/03/19 06:30 RBC 2.77 10^6/uL (4.70-6.10) L 11/03/19 06:30 Hgb 8.2 g/dL (14.0-18.0) L 11/03/19 06:30 Hct 24.5 % (42.0-52.0) L 11/03/19 06:30 MCV 88.4 fL (80.0-94.0) 11/03/19 06:30 MCH 29.6 pg (27.0-31.0) 11/03/19 06:30 MCHC 33.5 g/dL (32.0-36.0) 11/03/19 06:30 RDW 14.8 % (12.0-15.0) 11/03/19 06:30 Plt Count 111 10^3/uL (130-450) L 11/03/19 06:30 MPV 10.3 fL (7.4-11.4) 11/03/19 06:30 Neut # (Auto) 7.7 10^3/uL (1.5-6.6) H 11/03/19 06:30 Lymph # (Auto) 1.7 10^3/uL (1.5-3.5) 11/03/19 06:30 [place] # (Auto) 0.8 10^3/uL (0.0-1.0) 11/03/19 06:30 Eos # (Auto) 0.3 10^3/uL (0.0-0.7) 11/03/19 06:30 Baso # (Auto) 0.0 10^3/uL (0.0-0.1) 11/03/19 06:30 Absolute Nucleated RBC 0.00 x10^3/uL 11/03/19 06:30 Nucleated RBC % 0.0 /100WBC 11/03/19 06:30 PT 13.8 secs (9.9-12.6) H 10/31/19 16:10 INR 1.2 (0.8-1.2) 10/31/19 16:10 Sodium 139 mmol/L (135-145) 11/03/19 06:30 Potassium 2.9 mmol/L (3.5-5.0) L 11/03/19 06:30 Chloride 111 mmol/L (101-111) 11/03/19 06:30 Carbon Dioxide 22 mmol/L (21-32) 11/03/19 06:30 Anion Gap 6.0 (6-13) 11/03/19 06:30 BUN 24 mg/dL (6-20) H 11/03/19 06:30 Creatinine 0.9 mg/dL (0.6-1.2) 11/03/19 06:30 Estimated GFR (MDRD) 80 (>89) L 11/03/19 06:30 Glucose 103 mg/dL (70-100) H 11/03/19 06:30 Calcium 7.6 mg/dL (8.5-10.3) L 11/03/19 06:30 Phosphorus 3.0 mg/dL (2.5-4.6) 11/03/19 06:30 Magnesium 1.7 mg/dL (1.7-2.8) 11/03/19 06:30 Iron 86 ug/dL (45-182) 11/01/19 06:01 TIBC 280 ug/dL (250-450) 11/01/19 06:01 % Saturation 31 % (20-50) 11/01/19 06:01 Transferrin 200 mg/dL (180-329) 11/01/19 06:01 Ferritin 14.8 ng/mL (23.9-336.2) L 11/01/19 06:01 Total Bilirubin 0.7 mg/dL (0.2-1.0) 10/31/19 11:32 AST 17 IU/L (10-42) 10/31/19 11:32 ALT 17 IU/L (10-60) 10/31/19 11:32 Alkaline Phosphatase 61 IU/L (42-121) 10/31/19 11:32 Troponin I High Sens 7.9 ng/L (2.3-19.7) 10/31/19 20:22 Total Protein 7.0 g/dL (6.7-8.2) 10/31/19 11:32 Albumin 3.7 g/dL (3.2-5.5) 10/31/19 11:32 Globulin 3.3 g/dL (2.1-4.2) 10/31/19 11:32 Albumin/Globulin Ratio 1.1 (1.0-2.2) 10/31/19 11:32 Lipase 31 U/L (22-51) 10/31/19 11:32 Blood Type O POSITIVE 10/31/19 23:00 Antibody Screen NEGATIVE 10/31/19 23:00 Crossmatch IS Only See Detail 10/31/19 23:00 - Procedures Procedures: Procedures INSPECTION OF LOWER INTESTINAL TRACT, ENDO (10/01/17) REPLACEMENT OF LEFT LENS WITH SYNTH SUB, PERC APPROACH (04/09/18) Sepsis Event Note (H) - Evaluation Current Stage of Sepsis: Ruled out
[2019-11-03] MEDS: ATORVASTATIN 40 MG TABLET PO SCH (10:54)
[2019-11-03] MEDS: MULTIVITAMIN TABLET PO SCH (10:54)
[2019-11-03] MEDS: METOPROLOL TARTRATE 50 MG TABLET PO SCH (10:54)
[2019-11-03] MEDS: PANTOPRAZOLE 40 MG VIAL IVP SCH ×2 (10:55→20:09)
[2019-11-03] MEDS: TAMSULOSIN 0.4 MG CAPSULE PO SCH (10:55)
[2019-11-03] MEDS: POTASSIUM CHLOR 10 MEQ/100 ML 10 MEQ/100 ML BAG IV SCH ×4 (11:52→15:28)
--- NOTE | 2019-11-03 15:22 | ADVANCE CARE PLANNING NOTE ---
Advance Care Planning - Planning Encounter Date: 11/03/19 Time: 14:00 Purpose: To establish his wishes regarding management of the persistent lower GI bleeding. Parties in Attendance: I spoke to the patient, who was in his hospital bed. Decisional Capacity of the Patient: He has full decisional capacity. - Diagnosis for Encounter (1) Lower GI bleed Summary: This is recurrent and prior hospitalizations found no cause. He continues to have red BMs. He had syncope on 11/01/19, with a documented BP in the 70's then. He continues to require blood transfusions. He has been offered various interventions and has repeatedly declined abdominal surgery if it results in a colostomy bag or if intra-abdominal jose are to be used. 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 His of a stroke suddenly and left him with a 12 year old child and 13 year old child to raise, and he never remarried. His 2 children never or had any kids. They live near [place], in a home that he owns and they pay him rent. He lives independently on [address] [address] [facility]. He has had repeat EGDs and colonoscopies, CT scans and surgical consults in the past, to deal with recurrent lower GI bleeding. The last colonoscopy was in 03/03, in [facility]. He has been diagnosed with diverticulitis in the past. He has seen on TV that when jose are used during surgery on the bowel, that they cause later complications such as ripping tissue, so he vehemently and repeatedly refuses any surgery that needs jose. His had a abdominal tumor and needed a colostomy for 2 years, and he does not want a colostomy. He was called back emergently during a [employer] flight as a river pilot, many years ago, because his had a stroke and he was able to be at her bedside when she , with the colostomy. As he described that, he was tearful. He is annoyed that he needs so many blood draws and interruptions. This morning he refused an orthostatic VS check because he was fed up with everything. When I explained the reason for the vital sign checks to be done lying, sitting, standing once a day, and that it would allow him more liberal activity, than strict bedrest, if the VS are stable, he then agreed to comply. Objective/Medical Story: The patient presented with a recurrence of BRBPR. CT imaging showed presumed blood in the bowel and stomach area. The citrix consultant suspected the finding in stomach was not blood. A tagged nuclear scan was planned for managing the site of bleeding with embolization by an Interventional Radiologist, with back-up available from a general surgeon, and he has refused the abdominal surgery if he would get a colostomy or if jose are used, since he has seen TV info that jose cause ripping of the bowel. He has had hospitalizations for this same problem in [place], [place] in 03/03 and also work-up and surgery consultation in [facility]. He has a Hx of HTN, CAD with prior CABG, paroxysmal Afib but is not on antiplatelet agents or anticoagulants because of the recurrent GI bleed during episodes. During this hospitalization he has received 3U PRBCs, and had Hgb checks q6h, now q8h. On 11/01/19, while in the bathroom, he slumped on the toilet, got a sternal rub, was placed into bed and BP was in the 70's systolic. He was ordered to be at strict bed rest following that. An Echo was done that showed no significant problems. He was started on a soft diet and still gets iv fluids and transfusions when Hgb is less than 7. He still has painless, red BMs, several times a day. The solar energy consultant and designer reiterated to him the same above options and he refused surgery, therefore no tagged nuclear scan has been done because IR intervention needs consent for abdominal surgery for back-up. He needed 19 blood transfusions when at the [place] hospital. I asked if he would like to set a limit of transfusions and then "let nature take it's course"? He said he didn't know. I asked if he would accept surgical (back-up) if the surgeon used no jose but only sutures, and he said he didn't know. I asked if he was ready to stop managing this entirely and start Comfort Care or transition to Hospice, and he answered that he didn't know. He would like his daughter to help him make a decision as to how to proceed next. She is a Fitness And Wellness Director at [employer] and she requested an call back and explanation yesterday, because she could not understand Mike Petty NP. Mr Suero requested that I speak to his daughter Amina and explain the interventional options, risks and benefits, because he could not clearly understand what the previous Hospitalist, Mike Petty NP said "with his Romanian accent" as well. Mr Suero said he did not "fire" Mike Petty NP, but he cannot understand him. I said that I will now be his Hospitalist, for the rest of this admission, which he was happy with. Goals of Care: He wants to have his daughter help him make a decision as to further management. He wants no colostomy. He was able to admit that it is because his " with a colostomy". He wants no jose used ever, during surgery, because of what he understands, is that jose cause internal ripping. He wants to be a DNR if he suffers a Code Blue. Plan: I will postpone the Palliative Care consult with Lisa Reid NP, since he did not chose that direction. I will contact the daughter and speak with her so she can help him make an informed decision. He agrees to daily orthostatic vital sign checks. I may contact a surgeon to ask if that type of surgery could be done without using jose. He will remain a DNR. Code Status: Do Not Attempt Resuscitation Time spent on advance care plannin min
--- NOTE | 2019-11-03 19:38 | PROVIDER PROGRESS NOTE ---
Safety Compliance Specialist Note - Safety Compliance Specialist Note Safety Compliance Specialist Note: I called the patient's daughter by name Selene Suero last night at her request to discuss Mr. Suero's care plan. This was sometime around 8 PM to 9 PM on November 02, 2019. It went to voicemail so I left a message for her to call me back. I then went in to talk to the patient regarding the nuclear study. I explained the potential need for surgery in the event that interventional radiology could not address the bleed after a tagged red blood cell study. The patient is emphatic that he does not want to have any surgery that would involve the use of jose. He also states that he would not want to have a colostomy bag. I inquired if he will be interested in talking with the general surgeon in order to receive more information about any potential procedure. He stated that he had already been consulted upon by 2 general surgeons and did not want to talk to any more surgeons. He stated that he does not trust surgeons. He added that he has heard on TV that surgeries involving jose are bad. I explained that his bleeding has been going on for a few weeks now and administering blood transfusions have not been and and is not a definite solution to the problem. That this cannot be sustained long-term. In the absence of a definite solution he would probably from bleeding. The patient expressed understanding and then stated that we all sometime. I left a conversation at this point encouraging him to reconsider overnight and informed him that I would wait to hear from his daughter.
[2019-11-03] MEDS: SODIUM CHLORIDE FLUSH 0.9% 10 ML SYRINGE IVP PRN (20:09)
[2019-11-03 20:31] LABS: HGB - HEMOGLOBIN 7.1 g/dL (14.0-18.0)
[2019-11-04 05:31] LABS: BASOPHILS % (AUTO) 0.4 %; EOSINOPHILS # (AUTO) 0.3 10^3/uL (0.0-0.7); EOSINOPHILS % (AUTO) 3.2 %; LYMPHOCYTES # (AUTO) 1.5 10^3/uL (1.5-3.5); LYMPHOCYTES % (AUTO) 15.8 %; MEAN CORPUSCULAR HEMOGLOBIN 30.8 pg (27.0-31.0); MEAN CORPUSCULAR VOLUME 90.6 fL (80.0-94.0); MEAN PLATELET VOLUME 11.3 fL (7.4-11.4); MONOCYTES # (AUTO) 0.7 10^3/uL (0.0-1.0); MONOCYTES % (AUTO) 7.1 %; NEUTROPHILS # (AUTO) 6.9 10^3/uL (1.5-6.6); NEUTROPHILS % (AUTO) 73.2 %; PLT - PLATELET COUNT 106 10^3/uL (130-450); RED BLOOD COUNT 2.24 10^6/uL (4.70-6.10); RED CELL DISTRIBUTION WIDTH 15.4 % (12.0-15.0); WHITE BLOOD COUNT 9.4 x10^3/uL (4.8-10.8)
[2019-11-04 05:38] LABS: ALBUMIN 2.4 g/dL (3.2-5.5); ALBUMIN/GLOBULIN RATIO 1.1 (1.0-2.2); BILIRUBIN,TOTAL 0.6 mg/dL (0.2-1.0); CALCIUM 7.7 mg/dL (8.5-10.3); CREATININE 0.8 mg/dL (0.6-1.2); TOTAL PROTEIN 4.6 g/dL (6.7-8.2)
[2019-11-04 05:47] LABS: HGB - HEMOGLOBIN 6.9 g/dL (14.0-18.0)
[2019-11-04] MEDS ORDERED: FUROSEMIDE 20 MG/2 ML VIAL IVP PRN (07:56)
[2019-11-04] MEDS: ATORVASTATIN 40 MG TABLET PO SCH (08:28)
[2019-11-04] MEDS: TAMSULOSIN 0.4 MG CAPSULE PO SCH (08:29)
[2019-11-04] MEDS: PANTOPRAZOLE 40 MG VIAL IVP SCH ×2 (08:29→20:51)
[2019-11-04] MEDS: MULTIVITAMIN TABLET PO SCH (08:29)
[2019-11-04] MEDS: SODIUM CHLORIDE FLUSH 0.9% 10 ML SYRINGE IVP SCH ×2 (08:29→17:18)
[2019-11-04] MEDS: METOPROLOL TARTRATE 50 MG TABLET PO SCH (08:29)
[2019-11-04] MEDS: LACTATED RINGERS 1,000 ML IV SCH ×2 (08:46→17:18)
[2019-11-04] MEDS ORDERED: lisinopriL 20 MG TABLET PO SCH (09:00)
--- NOTE | 2019-11-04 12:48 | PROVIDER PROGRESS NOTE ---
Assessment/Plan - Problem List (1) Lower GI bleed Assessment/Plan: He again had a large bloody BM this morning. I spoke to the daughter at 1630 yesterday and explained the embolization procedure in detail, risks and benefits, then bowel surgery and possibly a surgeon would do that without using jose. I answered her questions to her satisfaction. She was to then call her father and speak to him. The patient says she never called him last night after our phone conversation. (There was trouble with his phone yesterday, however). He is tolerating a soft diet. He will get blood transfused due to the drop in Hgb. (2) Anemia due to GI blood loss Assessment/Plan: The pt had 3 U PRBCs before today. The Hgb dropped to 6.9 on morning labs. He will get 2U blood transfused today due to the drop in Hgb. Follow CBC q12h. (3) Syncope Assessment/Plan: Apparently he had syncope in our ER AND in his hospital room on 11/01/19. Orthostatic VS checks were ordered daily to start yesterday, he is not orthostatic but running "soft" BPs. Will stop Zestril entirely, which I had decreased from his home dose, yesterday. Continue some mB-claude due to Hx CAD. He can be OOB with assistance therefore and will allow BSC. (4) Hypokalemia Assessment/Plan: Related to inadequate po intyake and iv hydration. Replace. Follow BMP daily. (5) Non-compliance with treatment Assessment/Plan: This morning he refused his meds, then said it was because he doesn't trust everyone and doesn't know what each pill is for AND because at his last hospitalization he was charged for every pill and is still paying of a $8000 bill. His RN was reminded to educate as she administers each pill. I spoke to Utilization Management to request that someone explain to him how he may be billed, since he probably does have to pay for each item in a hospital, when he is in Observation status. Shellie, of our dept advised that I order an Prosthetic Technician Consult. There is no such option i [employer], however. Shellie requested that someone come to speak to him, however, and the patient described to me that some person came and "was trying to sell him new health insurance". She wanted him to sign some form and he refused, he told me. (6) History of coronary artery disease Assessment/Plan: No cardiopulmonary sx this admission and trops x2 were normal. - Current Meds Current Meds: Current Medications Generic Name Dose Route Start Last Admin Trade Name Freq PRN Reason Stop Dose Admin Atorvastatin Calcium 80 mg 11/01/19 09:00 11/04/19 08:28 Lipitor PO 80 mg DAILY DIVINE Administration Lactated Ringer's 1,000 mls @ 75 mls/hr 11/03/19 09:00 11/04/19 08:46 Lr IV 75 mls/hr .[id number] DIVINE Administration Metoprolol Tartrate 100 mg 11/03/19 09:00 11/04/19 08:29 Lopressor PO Not Given DAILY DIVINE Multivitamins 1 tab 11/01/19 08:00 11/04/19 08:29 Theragran PO Not Given DAILYWM DIVINE Pantoprazole Sodium 40 mg 10/31/19 21:00 11/04/19 08:29 Protonix IVP 40 mg BID DIVINE Administration Sodium Chloride 10 ml 10/31/19 15:54 11/03/19 20:09 Normal Saline Flush 0.9% IVP 20 ml PRN PRN Administration NEEDED PER PROVIDER ORDERS Sodium Chloride 10 ml 10/31/19 17:00 11/04/19 08:29 Normal Saline Flush 0.9% IVP 10 ml 0100,0900,1700 DIVINE Administration Tamsulosin HCl 0.4 mg 11/02/19 21:15 11/04/19 08:29 Flomax PO Not Given DAILY DIVINE - Lab Result Fish Bone Diagrams: 11/04/19 04:30 11/04/19 04:30 - Additional Planning My Orders: My Active Orders 11/04/19 07:56 Transfuse RBCs Leukoreduced [RC] .ONCE FUROSEMIDE INJ 20mg VIAL [LASIX INJ 20mg VIAL] 20 mg IVP ONCE PRN 11/04/19 07:59 Activity Orders [RC] DAILY 11/04/19 09:35 RBC, LEUKOREDUCED Stat TYPE AND SCREEN Stat Subjective - Subjective Patient Reports: Other ("No change", he finally enjoyed his diet for lunch today.) Objective Vital Signs: Vital Signs - 24 hr 11/03/19 11/03/19 11/03/19 15:54 15:57 19:55 Temperature 36.8 C 36.9 C Heart Rate Heart Rate [ 105 H 96 Brachial] Heart Rate [ 129 H Sitting (After 1 Minute)] Heart Rate [ 138 H Standing (After 1 Minute)] Heart Rate [ 102 H Supine] Respiratory 20 20 Rate Blood Pressure Blood Pressure 117/74 131/49 H [Right Brachial artery] Blood Pressure 112/66 [Sitting (After 1 Minute)] Blood Pressure 111/45 L [Standing ( After 1 Minute) ] Blood Pressure 134/64 H [Supine] O2 Saturation 98 96 11/04/19 11/04/19 11/04/19 00:58 04:56 07:45 Temperature 36.4 C L 36.3 C L 36.4 C L Heart Rate Heart Rate [ 86 95 89 Brachial] Heart Rate [ 115 H Sitting (After 1 Minute)] Heart Rate [ 98 Standing (After 1 Minute)] Heart Rate [ 89 Supine] Respiratory 18 18 18 Rate Blood Pressure Blood Pressure 153/65 H 149/69 H 132/60 H [Right Brachial artery] Blood Pressure 134/60 H [Sitting (After 1 Minute)] Blood Pressure 129/76 [Standing ( After 1 Minute) ] Blood Pressure 132/60 H [Supine] O2 Saturation 94 94 95 11/04/19 11/04/19 11/04/19 11:04 11:29 12:07 Temperature 36.5 C 36.6 C 36.5 C Heart Rate 95 93 Heart Rate [ 92 Brachial] Heart Rate [ Sitting (After 1 Minute)] Heart Rate [ Standing (After 1 Minute)] Heart Rate [ Supine] Respiratory 16 14 18 Rate Blood Pressure 127/45 L 125/41 L Blood Pressure 162/62 H [Right Brachial artery] Blood Pressure [Sitting (After 1 Minute)] Blood Pressure [Standing ( After 1 Minute) ] Blood Pressure [Supine] O2 Saturation 98 Oxygen O2 Source Room air I&O (Last 24 Hrs): Intake and Output Totals x24h 11/02/19 11/03/19 11/04/19 23:59 23:59 23:59 Intake Total 3634.333 2176.25 1428.75 Output Total 700 450 500 Balance 2934.333 1726.25 928.75 General: Alert, Oriented x3 HEENT: Mucous membr. moist/pink Neck: Supple, No JVD Neuro: Alert, Non Focal Cardiovascular: Regular rate, No murmurs Respiratory: No respiratory distress, Breath sounds nml Abdomen: Normal bowel sounds, Soft, No tenderness Extremities: No edema - Results Results: Laboratory Results WBC 9.4 x10^3/uL (4.8-10.8) 11/04/19 04:30 RBC 2.24 10^6/uL (4.70-6.10) L 11/04/19 04:30 Hgb 6.9 g/dL (14.0-18.0) L* 11/04/19 04:30 Hct 20.3 % (42.0-52.0) L 11/04/19 04:30 MCV 90.6 fL (80.0-94.0) 11/04/19 04:30 MCH 30.8 pg (27.0-31.0) 11/04/19 04:30 MCHC 34.0 g/dL (32.0-36.0) 11/04/19 04:30 RDW 15.4 % (12.0-15.0) H 11/04/19 04:30 Plt Count 106 10^3/uL (130-450) L 11/04/19 04:30 MPV 11.3 fL (7.4-11.4) 11/04/19 04:30 Neut # (Auto) 6.9 10^3/uL (1.5-6.6) H 11/04/19 04:30 Lymph # (Auto) 1.5 10^3/uL (1.5-3.5) 11/04/19 04:30 [place] # (Auto) 0.7 10^3/uL (0.0-1.0) 11/04/19 04:30 Eos # (Auto) 0.3 10^3/uL (0.0-0.7) 11/04/19 04:30 Baso # (Auto) 0.0 10^3/uL (0.0-0.1) 11/04/19 04:30 Absolute Nucleated RBC 0.00 x10^3/uL 11/04/19 04:30 Nucleated RBC % 0.0 /100WBC 11/04/19 04:30 PT 13.8 secs (9.9-12.6) H 10/31/19 16:10 INR 1.2 (0.8-1.2) 10/31/19 16:10 Sodium 141 mmol/L (135-145) 11/04/19 04:30 Potassium 3.2 mmol/L (3.5-5.0) L 11/04/19 04:30 Chloride 113 mmol/L (101-111) H 11/04/19 04:30 Carbon Dioxide 25 mmol/L (21-32) 11/04/19 04:30 Anion Gap 3.0 (6-13) L 11/04/19 04:30 BUN 21 mg/dL (6-20) H 11/04/19 04:30 Creatinine 0.8 mg/dL (0.6-1.2) 11/04/19 04:30 Estimated GFR (MDRD) 92 (>89) 11/04/19 04:30 Glucose 135 mg/dL (70-100) H 11/04/19 04:30 Calcium 7.7 mg/dL (8.5-10.3) L 11/04/19 04:30 Phosphorus 3.0 mg/dL (2.5-4.6) 11/03/19 06:30 Magnesium 1.7 mg/dL (1.7-2.8) 11/03/19 06:30 Iron 86 ug/dL (45-182) 11/01/19 06:01 TIBC 280 ug/dL (250-450) 11/01/19 06:01 % Saturation 31 % (20-50) 11/01/19 06:01 Transferrin 200 mg/dL (180-329) 11/01/19 06:01 Ferritin 14.8 ng/mL (23.9-336.2) L 11/01/19 06:01 Total Bilirubin 0.6 mg/dL (0.2-1.0) 11/04/19 04:30 AST 16 IU/L (10-42) 11/04/19 04:30 ALT 13 IU/L (10-60) 11/04/19 04:30 Alkaline Phosphatase 40 IU/L (42-121) L 11/04/19 04:30 Troponin I High Sens 7.9 ng/L (2.3-19.7) 10/31/19 20:22 Total Protein 4.6 g/dL (6.7-8.2) L 11/04/19 04:30 Albumin 2.4 g/dL (3.2-5.5) L 11/04/19 04:30 Globulin 2.2 g/dL (2.1-4.2) 11/04/19 04:30 Albumin/Globulin Ratio 1.1 (1.0-2.2) 11/04/19 04:30 Lipase 31 U/L (22-51) 10/31/19 11:32 Blood Type O POSITIVE 11/04/19 09:35 Antibody Screen NEGATIVE 11/04/19 09:35 Crossmatch IS Only See Detail 11/04/19 09:35 - Procedures Procedures: Procedures INSPECTION OF LOWER INTESTINAL TRACT, ENDO (10/01/17) REPLACEMENT OF LEFT LENS WITH SYNTH SUB, PERC APPROACH (04/09/18) Sepsis Event Note (H) - Evaluation Current Stage of Sepsis: Ruled out
[2019-11-04] MEDS: SODIUM CHLORIDE FLUSH 0.9% 10 ML SYRINGE IVP PRN (20:52)
[2019-11-05 05:22] LABS: BASOPHILS % (AUTO) 0.2 %; EOSINOPHILS # (AUTO) 0.2 10^3/uL (0.0-0.7); EOSINOPHILS % (AUTO) 1.4 %; HGB - HEMOGLOBIN 7.5 g/dL (14.0-18.0); LYMPHOCYTES # (AUTO) 1.4 10^3/uL (1.5-3.5); LYMPHOCYTES % (AUTO) 10.2 %; MEAN CORPUSCULAR HEMOGLOBIN 29.6 pg (27.0-31.0); MEAN CORPUSCULAR HGB CONC 32.9 g/dL (32.0-36.0); MEAN CORPUSCULAR VOLUME 90.1 fL (80.0-94.0); MEAN PLATELET VOLUME 11.1 fL (7.4-11.4); MONOCYTES % (AUTO) 7.2 %; NEUTROPHILS # (AUTO) 10.7 10^3/uL (1.5-6.6); NEUTROPHILS % (AUTO) 80.3 %; PLT - PLATELET COUNT 122 10^3/uL (130-450); RED BLOOD COUNT 2.53 10^6/uL (4.70-6.10); RED CELL DISTRIBUTION WIDTH 15.1 % (12.0-15.0); WHITE BLOOD COUNT 13.3 x10^3/uL (4.8-10.8)
[2019-11-05 05:35] LABS: ALBUMIN 2.5 g/dL (3.2-5.5); ALBUMIN/GLOBULIN RATIO 1.2 (1.0-2.2); BILIRUBIN,TOTAL 0.6 mg/dL (0.2-1.0); CALCIUM 7.6 mg/dL (8.5-10.3); CREATININE 0.8 mg/dL (0.6-1.2); TOTAL PROTEIN 4.6 g/dL (6.7-8.2)
[2019-11-05] MEDS: LACTATED RINGERS 1,000 ML IV SCH (06:47)
[2019-11-05] MEDS: ATORVASTATIN 40 MG TABLET PO SCH (08:01)
[2019-11-05] MEDS: PANTOPRAZOLE 40 MG VIAL IVP SCH (08:01)
[2019-11-05] MEDS: TAMSULOSIN 0.4 MG CAPSULE PO SCH (08:01)
[2019-11-05] MEDS: MULTIVITAMIN TABLET PO SCH (08:01)
[2019-11-05] MEDS: SODIUM CHLORIDE FLUSH 0.9% 10 ML SYRINGE IVP SCH ×2 (08:01)
[2019-11-05] MEDS: POTASSIUM CHLOR 10 MEQ/100 ML 10 MEQ/100 ML BAG IV SCH ×2 (08:05→09:05)
[2019-11-05] MEDS ORDERED: METOPROLOL SUCCINATE 25 MG TABLET PO SCH (09:00)
[2019-11-05] MEDS ORDERED: LACTATED RINGERS 1,000 ML IV SCH ×2 (09:49→11:28)
[2019-11-05] MEDS ORDERED: POTASSIUM CHLORIDE INJ 40 MEQ in SODIUM CHLORIDE 0.9% 500 ML IV ONE (10:00)
[2019-11-05] MEDS ORDERED: SODIUM CHLORIDE 0.9% 500 ML IV ONE (10:29)
[2019-11-05] MEDS ORDERED: LIDOCAINE JELLY 2% 6 ML JEL.PF.APP TOP ONE (11:09)
[2019-11-05] MEDS ORDERED: MAGNESIUM SULFATE 2 GRAM 2 GM/50 ML BAG IV ONE (12:00)
[2019-11-05 12:18] LABS: BASOPHILS % (AUTO) 0.2 %; EOSINOPHILS # (AUTO) 0.1 10^3/uL (0.0-0.7); EOSINOPHILS % (AUTO) 0.4 %; HGB - HEMOGLOBIN 7.4 g/dL (14.0-18.0); LYMPHOCYTES # (AUTO) 0.9 10^3/uL (1.5-3.5); LYMPHOCYTES % (AUTO) 6.4 %; MEAN CORPUSCULAR HEMOGLOBIN 30.5 pg (27.0-31.0); MEAN CORPUSCULAR HGB CONC 33.5 g/dL (32.0-36.0); MEAN CORPUSCULAR VOLUME 90.9 fL (80.0-94.0); MEAN PLATELET VOLUME 11.1 fL (7.4-11.4); MONOCYTES # (AUTO) 0.9 10^3/uL (0.0-1.0); MONOCYTES % (AUTO) 6.4 %; NEUTROPHILS # (AUTO) 12.1 10^3/uL (1.5-6.6); NEUTROPHILS % (AUTO) 85.9 %; PLT - PLATELET COUNT 130 10^3/uL (130-450); RED BLOOD COUNT 2.43 10^6/uL (4.70-6.10); RED CELL DISTRIBUTION WIDTH 15.4 % (12.0-15.0); WHITE BLOOD COUNT 14.1 x10^3/uL (4.8-10.8)
--- NOTE | 2019-11-05 12:29 | CONSULTATION NOTE ---
Consultation Report: Call to [phone] for pt transferring from floor to ICU. Dx, GI bleed, anemia. Hx of difficult IV access d/t pt being rude and aggressive. Patient currently without IV access. After discussing procedure, pt refuses to have CVL or PICC placed. He does, however, consent to peripheral IV attempt (large bore preferrable for IV RBCs). 18ga 1.88" IV placed at L forearm with attempt x1 after letting lidocain jelly sit at site for 5 mins. Able to draw 10cc blood for lab at this time as well. IV easily aspirates and flushes. Secured w/tegaderm. Pt tolerated procedure without complaint.
--- NOTE | 2019-11-05 12:30 | Discharge Plan ---
Discharge Plan Problem Reviewed?: Yes Disposition: 02 Transfer Acute Care Hosp Condition: Serious No Smoking: If you smoke, Please STOP! Call for help. Follow-up with: Juan Bains MD [Primary Care Provider] -
--- NOTE | 2019-11-05 12:31 | DISCHARGE SUMMARY ---
Discharge Summary Admit Date: 10/31/19 Discharge Date: 11/05/19 Discharging Provider: Dr Nicole Grimm Primary Care Provider: Dr Marin Bains Condition at Discharge: Serious Discharge Disposition: 02 Transfer Acute Care Hosp Discharge Facility [facility]: [facility] History of Present Illness: From the admission H&P of Dr Indra Aguayo: This is a 84-year-old male with a past medical history significant for coronary artery disease status post CABG, hypertension, paroxysmal atrial fibrillation, recurrent diverticular bleed who presents today complaining of bright red blood per rectum. He states he had 3 episodes of bleeding this morning that began at 3:30 AM. He does not recall how much blood he lost but given he continued to bleed, he came to the emergency department. He reports he has had recurrent bleeding for the past 20 years. He was hospitalized at [facility] for 2 weeks and he states he required 19 units of packed red blood cells at that time. He underwent a colonoscopy which did not show any active bleeding. He was hospitalized here 5 months prior to that admission for bright red blood per rectum and also underwent a colonoscopy which showed diverticulosis but no active bleeding. He reports a surgeon at [facility] in [place] discussed hemicolectomy with the patient states he does not want surgery as they use jose for the anastomosis and he has been seeing on TV that there can be severe consequences from these jose. He currently reports no abdominal pain and denies nausea/vomiting. He reports no hematuria or other signs of bleeding. He denies any aspirin use or anticoagulation. He also denies the use of NSAIDs. He does drink an alcoholic beverage every day but denies significant alcohol use. He reports feeling dizzy and lightheaded at times. Denies any palpitations or chest pain. He does not recall the syncopal episode in the emergency department. In the emergency department, he was initially tachycardic but normotensive. His hemoglobin came back at 11.6. The patient was adamant on leaving and was willing to leave AGAINST MEDICAL ADVICE despite recommendation from the emergency room provider and his family to stay for hospitalization. As he was being put into the wheelchair to leave, he had a brief episode of syncope. After further discussion with his family, he was reluctantly agreeable to being admitted. Shortly after arrival to the floor, he had another bloody bowel movement. We did discuss goals of care and the patient states that he is a DNR. - CONSULTS | PROCEDURES Consultations: Gen Valerie Surgeon - HOSPITAL COURSE Hospital Course: (1) Lower GI bleed He had a large, bloody but painless bowel movements every day. He was tolerating a liquid diet then soft diet. He had consult by General Surgery, and repeatedly declined surgery that would require jose, and explained that he had seen something on TV saying that jose in the GI tract cause ripping and tearing. This had been his position even before this hospitalization, he said, which the daughter confirmed. He was offered to have IR embolize the bleeding location, which would require consent for surgery as a back-up and he again refused. I spoke to the daughter by phone and explained the embolization procedure in detail, it's risks and benefits, what potential bowel surgery would entail, and that possibly a surgeon could do that without using jose. She was to then call her father and speak to him for explaining. On 11/05/19 he had a large bloody BM and his morning Hgb had again dropped (to 7.4) and BP was 80 supine. He was transferred to the ICU and 2 large bore peripheral iv's were started by Anesthesia. (2) Anemia due to GI blood loss The pt required 3 U PRBCs over the 5 days of hospitalization. The CBC was monitored q6-12h. At the time of ambulance transfer another U of blood was infusing. (3) Syncope Apparently has had syncope previosuly and had syncope in our ER, and had witnessed syncope in his hospital room here on 11/01/19. BP was 70's and bedrest was ordered. Orthostatic VS checks were then ordered daily. He was not orthostatic but had "soft" BPs. Therefore his home dose of Zestril was stopped entirely and B-claude dose lowered. (4) Hemorrhagic shock On 11/05/2019, while orthostatic vital signs were being checked, the blood pressure sitting up with feet dangling, was in the 60s systolic and he felt near-syncopal, HR 108 in sinus tachy. He was put back to supine and blood pressures remained in the 70s to 90s. He was ordered to receive a 500 cc saline bolus, but the iv infiltrated. He was transferred to the ICU. No further metoprolol was given. Two large bore iv's were ordered and placed by Anesthesia. The Hgb was 7.4 and so another unit of blood was ordered. This Hospitalist reached out to have him transferred to a facility with higher level of care available, and he was kindly accepted by the [facility] at [facility], and was transferred there by ambulance in serious but stable condition. (5) Hypokalemia Related to inadequate po intake and iv hydration. It was as low as 2.8, it was replaced and BMP followed daily. (6) Non-compliance with treatment On several mornings he refused his meds, then said it was because he "doesn't trust everyone and doesn't know what each pill is for AND because at his last hospitalization he was charged for every pill and is still paying off a $8000 bill". His RN was reminded to educate as she administers each pill. (Depending on his admission status, he probably does have to pay for each item, when he is in Observation status). (7) History of coronary artery disease No cardiopulmonary sx this admission and trops x2 were normal at admission and normal on the day of transfer. - ALLERGIES Allergies/Adverse Reactions: Allergies Allergy/AdvReac Type Severity Reaction Status Date / Time Penicillins Allergy Unknown Verified 09/30/17 23:28 - MEDICATIONS Home Medications: Ambulatory Orders Medication Instructions Recorded Confirmed RX: Omeprazole 20 mg PO DAILY 09/30/17 10/31/19 RX: Atorvastatin Calcium 80 mg PO DAILY 10/01/17 10/31/19 RX: Benazepril HCl 40 mg PO DAILY 10/01/17 10/31/19 RX: Metoprolol Tartrate 100 mg PO DAILY 10/01/17 10/31/19 Multivitamin [Multiple Vitamins] 1 each PO DAILY 10/31/19 10/31/19 - PHYSICAL EXAM AT DISCHARGE General Appearance: positive: No acute distress, Alert Eyes Bilateral: positive: Normal inspection, EOMI ENT: positive: ENT inspection nml, No signs of dehydration Neck: positive: Nml inspection, No JVD Respiratory: positive: No respiratory distress, Breath sounds nml Cardiovascular: positive: Regular rate & rhythm, No murmur Abdomen: positive: Non-tender, Nml bowel sounds, No distention Skin: positive: Pallor Neurologic/Psychiatric: positive: Oriented x3, Other (Non-focal) - LABS Result Diagrams: 11/05/19 12:08 11/05/19 04:45 - DIAGNOSTIC IMAGING Diagnostic Imaging Results: Final report reviewed - FOLLOW UP Follow Up: This will be determined after his hospital stay at [facility]. - TIME SPENT Time Spent in Discharge (Minutes): 60
--- NOTE | 2019-11-05 13:49 | CONSULTATION NOTE ---
Consultation Report: Additional peripheral IV placed for transport to another facility as well as ICU policy. 20ga 1.88" IV placed at R [facility] with attemptx1. Secured after easily aspirating and flushing blood. Secured with tegaderm. Pt tolerated procedure without complaint.
[2019-11-05 14:34] VITALS: BP 122/52
== END 2019-11-05 14:20 | disposition short-term general hospital (02) | DRG 377 ==
LOC: ED 10:57 → MS2 15:54 → OBSVTOIN 11-03 09:28 → ICU 11-05 11:30
PROVIDERS: ADMIT Internal Medicine; ATTEND Internal Medicine
PROC: 30233N1 Transfusion of Nonautologous Red Blood Cells into Peripheral Vein, Percutaneous Approach (ICD-10-PCS; principal; 2019-11-04)
DX: K57.31 Diverticulosis of large intestine without perforation or abscess with bleeding (principal); R57.8 Other shock; D62 Acute posthemorrhagic anemia; I48.0 Paroxysmal atrial fibrillation; E87.6 Hypokalemia; I10 Essential (primary) hypertension; R55 Syncope and collapse; I25.10 Atherosclerotic heart disease of native coronary artery without angina pectoris; E78.00 Pure hypercholesterolemia, unspecified; H91.90 Unspecified hearing loss, unspecified ear; Z66 Do not resuscitate; Z53.29 Procedure and treatment not carried out because of patient's decision for other reasons; Z95.1 Presence of aortocoronary bypass graft; Z87.19 Personal history of other diseases of the digestive system; Z87.891 Personal history of nicotine dependence
CPT/HCPCS: 36415; 36430; 74174; 80048; 80053; 82728; 83540; 83690; 83735; 84100; 84466; 84484; 85014; 85018; 85025; 85610; 86850; 86900; 86901; 86920; 87150; 93005; 93306; 93880; 96361; 96374; 96376; 99284; 99285; A9270; G0378; J7120; P9016; Q9967; 84132

== ENCOUNTER 2019-11-05 14:28 | Outpatient (CLI) | payer MEDICARE | END 2019-11-05 14:29 | disposition short-term general hospital (02) | LOC: EMS 14:28 | PROVIDERS: ATTEND Surgery | DX: D50.0 Iron deficiency anemia secondary to blood loss (chronic) (principal); K92.2 Gastrointestinal hemorrhage, unspecified | CPT/HCPCS: A0425; A0426 ==